=== PATIENT | female | born 1985 | race Caucasian/White ===

== ENCOUNTER → 2017-06-28 | Emergency (ER) | payer MEDICAID ==
[~2017-06-28] VITALS: Ht 157.5 cm; Wt 71.1 kg
[~2017-06-28] MED LIST: ESCI10TA45 PO; HYDR-3965 PO; HYDR-565 PO; HYDR-569 PO; LEVO1IUD VG; LORA1TAB PO; LORazepam 2 mg/ml vial IV ONE; ONDA4TAB12 PO; ONDA4TAB6 PO; OXYC-145 PO; PANT-47 PO; PROM25SU46 RC; RES15C PO; SUCR1TAB PO; metoclopramide 5 mg/ml inj IV ONE; morphine 2 MG/ML inj. syringe IV ONE; normal saline 1000ML IV soln IVB ONE; ondansetron/PF 4mg/2ml inj IV ONE
[2017-06-28 03:50] LABS: BASOPHILS % (AUTO) 0.5 % (0-1); EOSINOPHILS # (AUTO) 0.2 X10'3 (0-0.9); EOSINOPHILS % (AUTO) 2.4 % (0-6); HEMOGLOBIN 13.5 g/dl (12.0-16.0); LYMPHOCYTES # (AUTO) 2.2 X10'3 (1.1-4.8); LYMPHOCYTES % (AUTO) 27.3 % (21-51); MEAN CORPUSCULAR HEMOGLOBIN 30.6 PG (27.0-31.0); MEAN CORPUSCULAR HGB CONC 33.8 % (33.0-36.5); MEAN CORPUSCULAR VOLUME 90.5 FL (78-98); MEAN PLATELET VOLUME 7.4 FL (7.4-10.4); MONOCYTES # (AUTO) 0.8 X10'3 (0-0.9); MONOCYTES % (AUTO) 9.4 % (2-12); NEUTROPHILS # (AUTO) 4.9 X10'3 (1.8-7.7); NEUTROPHILS % (AUTO) 60.4 % (42-75); PLATELET COUNT 281 X10'3 (140-440); RED BLOOD COUNT 4.42 X10'6 (4.20-5.60); RED CELL DISTRIBUTION WIDTH 14.4 % (11.5-14.5); WHITE BLOOD COUNT 8.1 X10'3 (4.5-11.0)
[2017-06-28 04:08] LABS: ALANINE AMINOTRANSFERASE 24 U/L (12-78); ALBUMIN 3.4 G/DL (3.4-5.0); ALBUMIN/GLOBULIN RATIO 1.1 (1.1-1.5); ALKALINE PHOSPHATASE 49 IU/L (46-116); ANION GAP 8 (8-16); ASPARTATE AMINO TRANSFERASE 18 U/L (10-37); BILIRUBIN,TOTAL 0.3 MG/DL (0.1-1.0); BLOOD UREA NITROGEN 14 MG/DL (7-18); BUN/CREATININE RATIO 17.5 (6.6-38.0); CALCIUM 8.7 MG/DL (8.5-10.1); CHLORIDE 106 MMOL/L (99-107); GLUCOSE 92 MG/DL (70-104); LIPASE 118 U/L (73-393); SODIUM 140 MMOL/L (135-145); TOTAL CARBON DIOXIDE 26.1 MMOL/L (24-32); TOTAL PROTEIN 6.6 G/DL (6.4-8.2); eGFR 83 ML/MIN
[2017-06-28 04:18] LABS: HCG SERUM QL NEGATIVE
[2017-06-28 05:08] VITALS: BP 115/68
== END | disposition home or self-care (01) ==
LOC: ER 03:12
DX: R10.84 Generalized abdominal pain (principal); R11.2 Nausea with vomiting, unspecified; G89.29 Other chronic pain; J45.909 Unspecified asthma, uncomplicated; Z88.1 Allergy status to other antibiotic agents; Z90.49 Acquired absence of other specified parts of digestive tract; Z98.890 Other specified postprocedural states; Z79.899 Other long term (current) drug therapy
CPT/HCPCS: 36415; 80053; 83690; 84703; 85025; 96361; 96374; 96375; 99284; J2060; J2270; J2405; J2765; J7030

== ENCOUNTER 2017-10-25 17:49 | Emergency (ER) | payer MEDICAID ==
[~2017-10-25] VITALS: Ht 157.5 cm; Wt 68.0 kg
[~2017-10-25 17:49] MED LIST changes: -HYDR-3965 PO; -LORazepam 2 mg/ml vial IV ONE; -metoclopramide 5 mg/ml inj IV ONE; -morphine 2 MG/ML inj. syringe IV ONE; -normal saline 1000ML IV soln IVB ONE; -ondansetron/PF 4mg/2ml inj IV ONE
[2017-10-25] MEDS ORDERED: morphine 4 MG/ML inj SYRINge IV ONE (20:40)
[2017-10-25] MEDS ORDERED: normal saline 1000ML IV soln IVB ONE (20:40)
[2017-10-25] MEDS ORDERED: ondansetron/PF 4mg/2ml inj IV ONE (20:40)
[2017-10-25 21:45] LABS: BASOPHILS % (AUTO) 0.4 % (0-1); EOSINOPHILS # (AUTO) 0.2 X10'3 (0-0.9); EOSINOPHILS % (AUTO) 2.7 % (0-6); HEMATOCRIT 39.3 % (35.0-45.0); HEMOGLOBIN 13.3 g/dl (12.0-16.0); LYMPHOCYTES # (AUTO) 2.9 X10'3 (1.1-4.8); LYMPHOCYTES % (AUTO) 36.1 % (21-51); MEAN CORPUSCULAR HEMOGLOBIN 30.5 PG (27.0-31.0); MEAN CORPUSCULAR HGB CONC 33.9 % (33.0-36.5); MEAN PLATELET VOLUME 7.8 FL (7.4-10.4); MONOCYTES # (AUTO) 0.8 X10'3 (0-0.9); MONOCYTES % (AUTO) 9.5 % (2-12); NEUTROPHILS # (AUTO) 4.1 X10'3 (1.8-7.7); NEUTROPHILS % (AUTO) 51.3 % (42-75); PLATELET COUNT 272 X10'3 (140-440); RED BLOOD COUNT 4.37 X10'6 (4.20-5.60); RED CELL DISTRIBUTION WIDTH 14.2 % (11.5-14.5)
[2017-10-25 21:54] LABS: INR 1.1 INR; PARTIAL THROMBOPLASTIN TIME 26 SECONDS (22-32)
[2017-10-25 21:58] LABS: ALANINE AMINOTRANSFERASE 19 U/L (12-78); ALBUMIN 3.8 G/DL (3.4-5.0); ALBUMIN/GLOBULIN RATIO 1.2 (1.1-1.5); ALKALINE PHOSPHATASE 50 IU/L (46-116); ANION GAP 6 (8-16); ASPARTATE AMINO TRANSFERASE 19 U/L (10-37); BILIRUBIN,TOTAL 0.3 MG/DL (0.1-1.0); BLOOD UREA NITROGEN 17 MG/DL (7-18); CHLORIDE 105 MMOL/L (99-107); CREATININE 0.85 MG/DL (0.40-0.90); GLUCOSE 86 MG/DL (70-104); LIPASE 171 U/L (73-393); MAGNESIUM 1.6 MG/DL (1.5-2.4); POTASSIUM 3.5 MMOL/L (3.5-5.1); SODIUM 140 MMOL/L (135-145); TOTAL CARBON DIOXIDE 28.9 MMOL/L (24-32); TOTAL PROTEIN 7.1 G/DL (6.4-8.2); eGFR 78 ML/MIN
[2017-10-25 22:55] VITALS: BP 109/55
== END 2017-10-25 22:57 | disposition home or self-care (01) ==
LOC: ER 17:49
DX: E86.0 Dehydration (principal); F12.10 Cannabis abuse, uncomplicated; J45.909 Unspecified asthma, uncomplicated; G89.29 Other chronic pain; F17.200 Nicotine dependence, unspecified, uncomplicated; Z88.8 Allergy status to other drugs, medicaments and biological substances; Z79.899 Other long term (current) drug therapy; Z90.49 Acquired absence of other specified parts of digestive tract; Z90.89 Acquired absence of other organs
CPT/HCPCS: 36415; 74021; 80053; 83690; 83735; 85025; 85610; 85730; 93005; 96361; 96374; 96375; 99285; J2270; J2405; J7030

== ENCOUNTER 2018-02-05 14:11 | Emergency (ER) | payer MEDICAID ==
[~2018-02-05] VITALS: Ht 157.5 cm; Wt 63.0 kg
[2018-02-05 14:38] LABS: BASOPHILS % (AUTO) 0.5 % (0-1); EOSINOPHILS # (AUTO) 0.2 X10'3 (0-0.9); EOSINOPHILS % (AUTO) 2.9 % (0-6); HEMATOCRIT 37.4 % (35.0-45.0); HEMOGLOBIN 12.8 g/dl (12.0-16.0); LYMPHOCYTES # (AUTO) 1.5 X10'3 (1.1-4.8); LYMPHOCYTES % (AUTO) 25.1 % (21-51); MEAN CORPUSCULAR HEMOGLOBIN 30.3 PG (27.0-31.0); MEAN CORPUSCULAR HGB CONC 34.2 % (33.0-36.5); MEAN CORPUSCULAR VOLUME 88.6 FL (78-98); MEAN PLATELET VOLUME 7.9 FL (7.4-10.4); MONOCYTES # (AUTO) 0.5 X10'3 (0-0.9); MONOCYTES % (AUTO) 8.4 % (2-12); NEUTROPHILS # (AUTO) 3.8 X10'3 (1.8-7.7); NEUTROPHILS % (AUTO) 63.1 % (42-75); PLATELET COUNT 283 X10'3 (140-440); RED BLOOD COUNT 4.22 X10'6 (4.20-5.60)
[2018-02-05 14:42] LABS: CLARITY,URINE CLEAR (Clear); COLOR,URINE YELLOW (Yellow); GLUCOSE, URINE NEGATIVE (Neg); KETONES,URINE NEGATIVE (Neg); LEUKOCYTE ESTERASE ,URINE NEGATIVE (Neg); NITRITES, URINE NEGATIVE (Neg); OCCULT BLOOD,URINE NEGATIVE (Neg); PROTEIN,URINE NEGATIVE (Neg); UA COLLECTION TYPE CLN CATCH MIDSTREAM; UROBILINOGEN,URINE 0.2 E.U/dL (0.2-1.0)
[2018-02-05 14:43] LABS: URINE HCG NEGATIVE (NEG)
[2018-02-05 14:47] LABS: PROTHROMBIN TIME 10.6 SECONDS (9.0-12.0)
[2018-02-05 14:55] LABS: ALANINE AMINOTRANSFERASE 24 U/L (12-78); ALBUMIN 3.5 G/DL (3.4-5.0); ALKALINE PHOSPHATASE 54 IU/L (46-116); ANION GAP 6 (8-16); ASPARTATE AMINO TRANSFERASE 17 U/L (10-37); BILIRUBIN,TOTAL 0.2 MG/DL (0.1-1.0); BLOOD UREA NITROGEN 12 MG/DL (7-18); BUN/CREATININE RATIO 12.2 (6.6-38.0); CALCIUM 8.6 MG/DL (8.5-10.1); CHLORIDE 105 MMOL/L (99-107); CREATININE 0.98 MG/DL (0.40-0.90); GLUCOSE 94 MG/DL (70-104); LIPASE 171 U/L (73-393); POTASSIUM 4.1 MMOL/L (3.5-5.1); SODIUM 139 MMOL/L (135-145); TOTAL CARBON DIOXIDE 27.6 MMOL/L (24-32); TOTAL PROTEIN 6.9 G/DL (6.4-8.2); eGFR 66 ML/MIN
[2018-02-05] MEDS ORDERED: ondansetron/PF 4mg/2ml inj IV ONE (17:20)
[2018-02-05] MEDS ORDERED: normal saline 1000ml 1,000 ML IV ONE (17:20)
[2018-02-05] MEDS ORDERED: mag hydrox/Alum hydrox/simeth 30ml oral suspension PO ONE (17:20)
[2018-02-05 17:39] VITALS: BP 113/65
== END 2018-02-05 18:15 | disposition home or self-care (01) ==
LOC: ER 14:12
DX: R10.13 Epigastric pain (principal); R11.10 Vomiting, unspecified; J45.909 Unspecified asthma, uncomplicated; G89.29 Other chronic pain; F12.90 Cannabis use, unspecified, uncomplicated; Z90.49 Acquired absence of other specified parts of digestive tract; Z90.89 Acquired absence of other organs; Z88.1 Allergy status to other antibiotic agents; Z79.899 Other long term (current) drug therapy
CPT/HCPCS: 36415; 80053; 81003; 81025; 83690; 85025; 85610; 96374; 99284; J2405; J7030

== ENCOUNTER 2018-02-07 09:25 | Emergency (ER) | payer MEDICAID ==
[~2018-02-07] VITALS: Ht 157.5 cm; Wt 67.0 kg
[2018-02-07 09:30] VITALS: BP 117/78
[2018-02-07] MEDS ORDERED: PSYL1PAC9 PO (09:47)
[2018-02-07] MEDS ORDERED: GABA-532 PO (09:47)
[2018-02-07] MEDS ORDERED: normal saline 1000ML IV soln IVB ONE (09:55)
== END 2018-02-07 10:40 | disposition left against medical advice (07) ==
LOC: ER 09:26
DX: R10.84 Generalized abdominal pain (principal); J45.909 Unspecified asthma, uncomplicated; G89.29 Other chronic pain; F12.90 Cannabis use, unspecified, uncomplicated; Z88.1 Allergy status to other antibiotic agents
CPT/HCPCS: 99283; 99284

== ENCOUNTER 2018-05-14 09:17 | Emergency (ER) | payer MEDICAID ==
[~2018-05-14] VITALS: Ht 157.5 cm; Wt 65.9 kg
[~2018-05-14 09:17] MED LIST changes: +GABA-532 PO; +HYDR-4353 PO; +HYDR-4383 PO; -HYDR-565 PO; -HYDR-569 PO; +PSYL1PAC9 PO
[2018-05-14] MEDS ORDERED: morphine 4 MG/ML inj SYRINge IV ONE (10:40)
[2018-05-14] MEDS ORDERED: normal saline 1000ML IV soln IVB ONE (10:40)
[2018-05-14] MEDS ORDERED: ondansetron/PF 4mg/2ml inj IV ONE (10:40)
[2018-05-14 11:04] LABS: BASOPHILS % (AUTO) 0.4 % (0-1); EOSINOPHILS # (AUTO) 0.1 X10'3 (0-0.9); EOSINOPHILS % (AUTO) 2.8 % (0-6); HEMATOCRIT 40.6 % (35.0-45.0); HEMOGLOBIN 13.3 g/dl (12.0-16.0); LYMPHOCYTES # (AUTO) 1.5 X10'3 (1.1-4.8); MEAN CORPUSCULAR HEMOGLOBIN 28.6 PG (27.0-31.0); MEAN CORPUSCULAR HGB CONC 32.7 % (33.0-36.5); MEAN CORPUSCULAR VOLUME 87.2 FL (78-98); MEAN PLATELET VOLUME 7.8 FL (7.4-10.4); MONOCYTES # (AUTO) 0.5 X10'3 (0-0.9); MONOCYTES % (AUTO) 9.7 % (2-12); NEUTROPHILS # (AUTO) 2.9 X10'3 (1.8-7.7); NEUTROPHILS % (AUTO) 57.1 % (42-75); PLATELET COUNT 314 X10'3 (140-440); RED BLOOD COUNT 4.66 X10'6 (4.20-5.60); RED CELL DISTRIBUTION WIDTH 14.6 % (11.5-14.5); WHITE BLOOD COUNT 5.1 X10'3 (4.5-11.0)
[2018-05-14 11:22] LABS: ALANINE AMINOTRANSFERASE 20 U/L (12-78); ALBUMIN 4.1 G/DL (3.4-5.0); ALBUMIN/GLOBULIN RATIO 1.1 (1.1-1.5); ALKALINE PHOSPHATASE 62 IU/L (46-116); ANION GAP 12 (8-16); ASPARTATE AMINO TRANSFERASE 14 U/L (10-37); BILIRUBIN,TOTAL 0.3 MG/DL (0.1-1.0); BLOOD UREA NITROGEN 13 MG/DL (7-18); BUN/CREATININE RATIO 12.5 (6.6-38.0); CALCIUM 9.4 MG/DL (8.5-10.1); CHLORIDE 102 MMOL/L (99-107); CREATININE 1.04 MG/DL (0.40-0.90); GLUCOSE 91 MG/DL (70-104); LIPASE 121 U/L (73-393); POTASSIUM 3.6 MMOL/L (3.5-5.1); SODIUM 139 MMOL/L (135-145); TOTAL CARBON DIOXIDE 25.4 MMOL/L (24-32); TOTAL PROTEIN 7.8 G/DL (6.4-8.2); eGFR 61 ML/MIN
[2018-05-14 11:39] LABS: CLARITY,URINE CLEAR (Clear); COLOR,URINE YELLOW (Yellow); GLUCOSE, URINE NEGATIVE (Neg); KETONES,URINE NEGATIVE (Neg); LEUKOCYTE ESTERASE ,URINE NEGATIVE (Neg); NITRITES, URINE NEGATIVE (Neg); OCCULT BLOOD,URINE LARGE (Neg); PH,URINE 5.5 (4.8-8.0); PROTEIN,URINE NEGATIVE (Neg); UROBILINOGEN,URINE 0.2 E.U/dL (0.2-1.0)
[2018-05-14 11:40] LABS: UA COLLECTION TYPE CLN CATCH MIDSTREAM
[2018-05-14 11:54] LABS: BACTERIA,URINE NONE SEEN /HPF (Neg); MUCUS STRANDS FEW /LPF (Neg); RBC,URINE 0-2 /HPF (0-2); SQUAMOUS EPITHELIAL CELL,UR FEW /LPF (FEW); WBC,URINE 0-4 /HPF (0-4)
[2018-05-14 12:21] VITALS: BP 146/65
== END 2018-05-14 12:26 | disposition home or self-care (01) ==
LOC: ER 09:17
DX: R10.84 Generalized abdominal pain (principal); R11.2 Nausea with vomiting, unspecified; F41.9 Anxiety disorder, unspecified; F32.9 Major depressive disorder, single episode, unspecified; F12.10 Cannabis abuse, uncomplicated; J45.909 Unspecified asthma, uncomplicated; G89.29 Other chronic pain; Z88.1 Allergy status to other antibiotic agents; Z91.018 Allergy to other foods; Z90.89 Acquired absence of other organs
CPT/HCPCS: 36415; 74018; 80053; 81001; 83690; 85025; 96361; 96374; 96375; 99284; J2270; J2405; J7030

== ENCOUNTER 2018-07-26 19:10 | Emergency (ER) | payer MEDICAID ==
[~2018-07-26] VITALS: Ht 157.5 cm; Wt 67.6 kg
[2018-07-26 19:38] LABS: URINE HCG NEGATIVE (NEG)
[2018-07-26 19:39] LABS: BASOPHILS # (AUTO) 0.2 X10'3 (0-0.2); BASOPHILS % (AUTO) 1.9 % (0-1); EOSINOPHILS # (AUTO) 0.1 X10'3 (0-0.9); EOSINOPHILS % (AUTO) 1.1 % (0-6); HEMOGLOBIN 13.4 g/dl (12.0-16.0); LYMPHOCYTES % (AUTO) 17.9 % (21-51); MEAN CORPUSCULAR HEMOGLOBIN 29.1 PG (27.0-31.0); MEAN CORPUSCULAR HGB CONC 33.4 g/dL (33.0-36.5); MEAN CORPUSCULAR VOLUME 87.2 FL (78-98); MEAN PLATELET VOLUME 7.6 FL (7.4-10.4); MONOCYTES # (AUTO) 0.7 X10'3 (0-0.9); MONOCYTES % (AUTO) 6.7 % (2-12); NEUTROPHILS # (AUTO) 8.1 X10'3 (1.8-7.7); NEUTROPHILS % (AUTO) 72.4 % (42-75); PLATELET COUNT 355 X10'3 (140-440); RED BLOOD COUNT 4.59 X10'6 (4.20-5.60); RED CELL DISTRIBUTION WIDTH 14.7 % (11.5-14.5); WHITE BLOOD COUNT 11.1 X10'3 (4.5-11.0)
[2018-07-26 19:50] LABS: INR 1.1 INR; PROTHROMBIN TIME 10.7 SECONDS (9.0-12.0)
[2018-07-26 19:52] LABS: CLARITY,URINE SLIGHTLY CLOUDY (Clear); COLOR,URINE YELLOW (Yellow); GLUCOSE, URINE NEGATIVE (Neg); KETONES,URINE TRACE mg/dl (Neg); LEUKOCYTE ESTERASE ,URINE NEGATIVE (Neg); NITRITES, URINE NEGATIVE (Neg); OCCULT BLOOD,URINE NEGATIVE (Neg); PH,URINE 5.5 (4.8-8.0); PROTEIN,URINE NEGATIVE (Neg); UROBILINOGEN,URINE 0.2 E.U/dL (0.2-1.0)
[2018-07-26 20:03] LABS: ALANINE AMINOTRANSFERASE 18 U/L (12-78); ALBUMIN/GLOBULIN RATIO 1.1 (1.1-1.5); ALKALINE PHOSPHATASE 55 IU/L (46-116); ANION GAP 11 (8-16); ASPARTATE AMINO TRANSFERASE 20 U/L (10-37); BILIRUBIN,TOTAL 0.5 MG/DL (0.1-1.0); BLOOD UREA NITROGEN 13 MG/DL (7-18); BUN/CREATININE RATIO 14.1 (6.6-38.0); CHLORIDE 104 MMOL/L (99-107); CREATININE 0.92 MG/DL (0.40-0.90); GLUCOSE 83 MG/DL (70-104); LIPASE 145 U/L (73-393); POTASSIUM 3.7 MMOL/L (3.5-5.1); SODIUM 139 MMOL/L (135-145); TOTAL CARBON DIOXIDE 24.1 MMOL/L (24-32); TOTAL PROTEIN 7.5 G/DL (6.4-8.2); eGFR 70 ML/MIN
[2018-07-26 20:16] LABS: UA COLLECTION TYPE CLN CATCH MIDSTREAM
[2018-07-26] MEDS ORDERED: HYDROcodone/acetaminophen 5mg/325mg tablet PO ONE (20:25)
[2018-07-26] MEDS ORDERED: metoclopramide 5 mg/ml inj IV ONE (20:25)
[2018-07-26 20:45] LABS: BACTERIA,URINE FEW /HPF (Neg); MUCUS STRANDS MANY /LPF (Neg); RBC,URINE NONE SEEN /HPF (0-2); SQUAMOUS EPITHELIAL CELL,UR MANY /LPF (FEW); WBC,URINE 0-4 /HPF (0-4)
[2018-07-26 21:19] VITALS: BP 126/72
== END 2018-07-26 21:28 | disposition home or self-care (01) ==
LOC: ER 19:11
DX: R10.13 Epigastric pain (principal); R11.2 Nausea with vomiting, unspecified; J45.909 Unspecified asthma, uncomplicated; G89.29 Other chronic pain; F12.90 Cannabis use, unspecified, uncomplicated; Z90.49 Acquired absence of other specified parts of digestive tract; Z90.89 Acquired absence of other organs; Z98.890 Other specified postprocedural states; Z79.899 Other long term (current) drug therapy; Z91.018 Allergy to other foods; Z88.1 Allergy status to other antibiotic agents; Z91.010 Allergy to peanuts; Z91.011 Allergy to milk products
CPT/HCPCS: 36415; 74018; 80053; 81001; 81025; 83690; 85025; 85610; 96374; 99284; J2765

== ENCOUNTER 2019-04-17 17:01 | Emergency (ER) | payer MEDICAID ==
[~2019-04-17] VITALS: Ht 157.5 cm; Wt 75.0 kg
[2019-04-17 17:09] VITALS: BP 128/75
== END 2019-04-17 18:10 | disposition home or self-care (01) ==
LOC: ER 17:02
DX: M79.641 Pain in right hand (principal); J45.909 Unspecified asthma, uncomplicated; G89.4 Chronic pain syndrome; F41.9 Anxiety disorder, unspecified; F12.20 Cannabis dependence, uncomplicated; F32.9 Major depressive disorder, single episode, unspecified; F12.90 Cannabis use, unspecified, uncomplicated; Z90.49 Acquired absence of other specified parts of digestive tract; Z88.1 Allergy status to other antibiotic agents; Z91.09 Other allergy status, other than to drugs and biological substances; Z91.018 Allergy to other foods
CPT/HCPCS: 73110; 73130; 99283

== ENCOUNTER 2019-05-14 07:05 | Emergency (ER) | payer MEDICAID ==
[~2019-05-14] VITALS: Ht 157.5 cm; Wt 72.7 kg
[2019-05-14 07:08] VITALS: BP 129/83
--- NOTE | 2019-05-14 07:14 | NUR ---
awaiting ed provider.call light within reach.
[2019-05-14] MEDS ORDERED: ketorolac trometh inj. 60 MG/2 ML VIAL IM ONE (07:40)
[2019-05-14] MEDS ORDERED: PENI500T2 PO (07:40)
[2019-05-14] MEDS ORDERED: ACET-3067 PO (07:40)
== END 2019-05-14 07:59 | disposition home or self-care (01) ==
LOC: ER 07:05
DX: K02.9 Dental caries, unspecified (principal); J45.909 Unspecified asthma, uncomplicated; F41.9 Anxiety disorder, unspecified; F32.9 Major depressive disorder, single episode, unspecified; G89.29 Other chronic pain; F12.90 Cannabis use, unspecified, uncomplicated; Z90.49 Acquired absence of other specified parts of digestive tract; Z98.890 Other specified postprocedural states; Z91.018 Allergy to other foods; Z88.1 Allergy status to other antibiotic agents; Z79.899 Other long term (current) drug therapy
CPT/HCPCS: 96372; 99283; J1885

== ENCOUNTER 2019-05-21 10:34 | Emergency (ER) | payer MEDICAID ==
[~2019-05-21] VITALS: Ht 157.5 cm; Wt 75.0 kg
[~2019-05-21 10:34] MED LIST changes: +PENI500T2 PO
[2019-05-21 11:09] LABS: URINE HCG NEGATIVE (NEG)
[2019-05-21 11:10] LABS: BASOPHILS % (AUTO) 0.3 % (0-1); EOSINOPHILS % (AUTO) 0.3 % (0-6); HEMATOCRIT 41.9 % (35.0-45.0); HEMOGLOBIN 14.4 g/dl (12.0-16.0); LYMPHOCYTES # (AUTO) 1.2 X10'3 (1.1-4.8); LYMPHOCYTES % (AUTO) 11.3 % (21-51); MEAN CORPUSCULAR HEMOGLOBIN 29.1 PG (27.0-31.0); MEAN CORPUSCULAR HGB CONC 34.3 g/dL (33.0-36.5); MEAN CORPUSCULAR VOLUME 84.9 FL (78-98); MEAN PLATELET VOLUME 7.5 FL (7.4-10.4); MONOCYTES # (AUTO) 0.3 X10'3 (0-0.9); MONOCYTES % (AUTO) 2.8 % (2-12); NEUTROPHILS # (AUTO) 8.7 X10'3 (1.8-7.7); NEUTROPHILS % (AUTO) 85.3 % (42-75); PLATELET COUNT 324 X10'3 (140-440); RED BLOOD COUNT 4.94 X10'6 (4.20-5.60); RED CELL DISTRIBUTION WIDTH 14.8 % (11.5-14.5); WHITE BLOOD COUNT 10.2 X10'3 (4.5-11.0)
[2019-05-21 11:14] LABS: CLARITY,URINE SLIGHTLY CLOUDY (Clear); COLOR,URINE YELLOW (Yellow); GLUCOSE, URINE NEGATIVE (Neg); KETONES,URINE NEGATIVE (Neg); LEUKOCYTE ESTERASE ,URINE NEGATIVE (Neg); NITRITES, URINE NEGATIVE (Neg); OCCULT BLOOD,URINE NEGATIVE (Neg); PH,URINE >=9.0 (4.8-8.0); PROTEIN,URINE NEGATIVE (Neg); UA COLLECTION TYPE CLN CATCH MIDSTREAM; UROBILINOGEN,URINE 0.2 E.U/dL (0.2-1.0)
[2019-05-21 11:24] LABS: MUCUS STRANDS MODERATE /LPF (Neg)
[2019-05-21 11:25] LABS: SQUAMOUS EPITHELIAL CELL,UR MODERATE /LPF (FEW)
[2019-05-21 11:26] LABS: ALANINE AMINOTRANSFERASE 22 U/L (12-78); ALKALINE PHOSPHATASE 54 IU/L (46-116); ANION GAP 9 (8-16); ASPARTATE AMINO TRANSFERASE 14 U/L (10-37); BILIRUBIN,TOTAL 0.3 MG/DL (0.1-1.0); BLOOD UREA NITROGEN 13 MG/DL (7-18); BUN/CREATININE RATIO 14.1 (6.6-38.0); CALCIUM 9.4 MG/DL (8.5-10.1); CHLORIDE 104 MMOL/L (99-107); CREATININE 0.92 MG/DL (0.40-0.90); GLUCOSE 110 MG/DL (70-104); LIPASE 169 U/L (73-393); POTASSIUM 4.2 MMOL/L (3.5-5.1); SODIUM 139 MMOL/L (135-145); TOTAL CARBON DIOXIDE 25.6 MMOL/L (24-32); TOTAL PROTEIN 7.9 G/DL (6.4-8.2); eGFR 70 ML/MIN
[2019-05-21 11:26] LABS: BACTERIA,URINE FEW /HPF (Neg); RBC,URINE 0-2 /HPF (0-2); WBC,URINE 0-4 /HPF (0-4)
[2019-05-21] MEDS ORDERED: proCHLORperazine 10 MG/2 ml inj IV ONE (12:10)
[2019-05-21] MEDS ORDERED: ketorolac trometh. 30mg/ml inj. IV ONE (12:10)
[2019-05-21] MEDS ORDERED: normal saline 1000ML IV soln IVB ONE (12:10)
[2019-05-21] MEDS ORDERED: ondansetron/PF 4mg/2ml inj IV ONE (12:10)
[2019-05-21] MEDS ORDERED: PANT-47 PO (12:39)
[2019-05-21] MEDS ORDERED: ONDA8TAB6 PO (12:39)
[2019-05-21] MEDS ORDERED: sucralfate 1gm/10ml UD suspension PO ONE (12:40)
[2019-05-21] MEDS ORDERED: dicyclomine 10mg/ml 2ml ampule IM ONE (12:40)
[2019-05-21] MEDS ORDERED: pantoprazole 40 MG vial IV ONE (12:40)
[2019-05-21 13:33] VITALS: BP 138/69
== END 2019-05-21 13:35 | disposition home or self-care (01) ==
LOC: ER 10:34
DX: K29.70 Gastritis, unspecified, without bleeding (principal); J45.909 Unspecified asthma, uncomplicated; G89.29 Other chronic pain; F41.9 Anxiety disorder, unspecified; F32.9 Major depressive disorder, single episode, unspecified; F12.90 Cannabis use, unspecified, uncomplicated; Z90.49 Acquired absence of other specified parts of digestive tract; Z98.890 Other specified postprocedural states; Z88.1 Allergy status to other antibiotic agents; Z91.018 Allergy to other foods; Z79.899 Other long term (current) drug therapy
CPT/HCPCS: 36415; 80053; 81001; 81025; 83690; 85025; 96361; 96372; 96374; 96375; 99283; C9113; J0500; J0780; J1885; J2405; J7030

== ENCOUNTER 2020-09-20 08:32 | Emergency (ER) | payer MEDICAID ==
[~2020-09-20] VITALS: Ht 157.5 cm; Wt 75.0 kg
[~2020-09-20 08:32] MED LIST changes: +ONDA8TAB6 PO; -PENI500T2 PO; -PROM25SU46 RC; +PROM25SU9 RC
[2020-09-20] MEDS ORDERED: NAPR-56 PO (09:04)
[2020-09-20] MEDS ORDERED: ORPH100T2 PO (09:04)
[2020-09-20] MEDS ORDERED: ketorolac trometh. 30mg/ml inj. IM ONE (09:05)
[2020-09-20] MEDS ORDERED: orphenadrine citrate 60mg/2ml inj. IM ONE (09:05)
[2020-09-20] MEDS ORDERED: ketorolac trometh inj. 60 MG/2 ML VIAL IM ONE (09:05)
[2020-09-20 09:17] VITALS: BP 128/89
== END 2020-09-20 09:20 | disposition home or self-care (01) ==
LOC: ER 08:33
DX: S39.012A Strain of muscle, fascia and tendon of lower back, initial encounter (principal); M62.838 Other muscle spasm; R05 Cough; J45.909 Unspecified asthma, uncomplicated; G89.29 Other chronic pain; F41.9 Anxiety disorder, unspecified; F32.9 Major depressive disorder, single episode, unspecified; F12.90 Cannabis use, unspecified, uncomplicated; Z85.41 Personal history of malignant neoplasm of cervix uteri; Z90.89 Acquired absence of other organs; Z98.890 Other specified postprocedural states; Z88.1 Allergy status to other antibiotic agents; Z88.8 Allergy status to other drugs, medicaments and biological substances; Z79.899 Other long term (current) drug therapy; X58.XXXA Exposure to other specified factors, initial encounter; Y93.89 Activity, other specified; Y92.89 Other specified places as the place of occurrence of the external cause; Y99.8 Other external cause status
CPT/HCPCS: 96372; 99284; J1885; J2360

== ENCOUNTER 2021-05-07 14:55 | Emergency (ER) | payer MEDICAID ==
[~2021-05-07] VITALS: Ht 157.5 cm; Wt 72.7 kg
[~2021-05-07 14:55] MED LIST changes: +ORPH100T2 PO
[2021-05-07] MEDS ORDERED: LORazepam 1 MG tablet PO ONE (15:45)
[2021-05-07] MEDS ORDERED: LORA-269 PO (17:17)
[2021-05-07 17:22] VITALS: BP 126/90
== END 2021-05-07 17:37 | disposition home or self-care (01) ==
LOC: ER 14:56
DX: F41.0 Panic disorder [episodic paroxysmal anxiety] (principal); F41.9 Anxiety disorder, unspecified; F32.9 Major depressive disorder, single episode, unspecified; J45.909 Unspecified asthma, uncomplicated; G89.29 Other chronic pain; F12.90 Cannabis use, unspecified, uncomplicated; Z87.410 Personal history of cervical dysplasia; Z90.49 Acquired absence of other specified parts of digestive tract; Z90.89 Acquired absence of other organs; Z98.890 Other specified postprocedural states; Z88.1 Allergy status to other antibiotic agents; Z91.018 Allergy to other foods; Z79.899 Other long term (current) drug therapy
CPT/HCPCS: 93005; 99283

== ENCOUNTER 2022-02-02 11:47 | Emergency (ER) | payer MEDICAID ==
[~2022-02-02] VITALS: Ht 157.5 cm; Wt 81.8 kg
[~2022-02-02 11:47] MED LIST changes: +LORA-269 PO
[2022-02-02 12:58] VITALS: BP 114/61
[2022-02-02] MEDS ORDERED: ondansetron 4mg rapidly disintigrating tab PO ONE (13:55)
[2022-02-02] MEDS ORDERED: ketorolac trometh. 30mg/ml inj. IM ONE (13:55)
[2022-02-02] MEDS ORDERED: LIDOcaine 1% W/epiNEPHrine 1:100,000 20ml vial IJ ONE (13:55)
[2022-02-02] MEDS ORDERED: TETanus/Pertussis (Acell)/Diphther VAC/PF (Tdap-Adult) 0.5ml syringe IMVAC ONE (13:55)
[2022-02-02] MEDS ORDERED: LIDOcaine 1% w/EPI 1:100,000 30ml vial (MDV) IJ ONE (14:10)
[2022-02-02] MEDS ORDERED: LORA-269 PO (17:18)
== END 2022-02-02 17:43 | disposition home or self-care (01) ==
LOC: ER 11:47
DX: S01.81XA Laceration without foreign body of other part of head, initial encounter (principal); J45.909 Unspecified asthma, uncomplicated; G89.29 Other chronic pain; F31.9 Bipolar disorder, unspecified; F12.10 Cannabis abuse, uncomplicated; Z90.49 Acquired absence of other specified parts of digestive tract; Z79.899 Other long term (current) drug therapy; Z91.018 Allergy to other foods; Z88.1 Allergy status to other antibiotic agents; X58.XXXA Exposure to other specified factors, initial encounter; Y93.9 Activity, unspecified; Y92.89 Other specified places as the place of occurrence of the external cause; Y99.8 Other external cause status; Z91.010 Allergy to peanuts
CPT/HCPCS: 90471; 90715; 96372; 99284; J1885; J7030; A6449

== ENCOUNTER 2022-10-20 18:43 | Emergency (ER) | payer MEDICAID ==
[~2022-10-20] VITALS: Ht 157.5 cm; Wt 81.8 kg
[~2022-10-20 18:43] MED LIST changes: -ORPH100T2 PO; +ORPH100T4 PO
[2022-10-20] MEDS ORDERED: normal saline 1000ML IV soln IVB ONE ×2 (19:25→20:45)
[2022-10-20] MEDS ORDERED: ondansetron/PF 4mg/2ml inj IV ONE (19:25)
[2022-10-20 19:28] LABS: HEMOGLOBIN 13.7 g/dl (12.0-16.0); MEAN CORPUSCULAR VOLUME 87.7 FL (78-98); WHITE BLOOD COUNT 7.5 X10'3 (4.5-11.0)
[2022-10-20 19:30] LABS: BASOPHILS % (AUTO) 0.4 % (0-1); EOSINOPHILS # (AUTO) 0.1 X10'3 (0-0.9); EOSINOPHILS % (AUTO) 1.2 % (0-6); HEMATOCRIT 41.6 % (35.0-45.0); LYMPHOCYTES % (AUTO) 26.8 % (21-51); MEAN CORPUSCULAR HEMOGLOBIN 28.9 PG (27.0-31.0); MEAN PLATELET VOLUME 7.6 FL (7.4-10.4); MONOCYTES # (AUTO) 0.7 X10'3 (0-0.9); MONOCYTES % (AUTO) 8.7 % (2-12); NEUTROPHILS # (AUTO) 4.7 X10'3 (1.8-7.7); NEUTROPHILS % (AUTO) 62.9 % (42-75); PLATELET COUNT 298 X10'3 (140-440); RED BLOOD COUNT 4.74 X10'6 (4.20-5.60); RED CELL DISTRIBUTION WIDTH 14.6 % (11.5-14.5)
[2022-10-20 19:39] LABS: ALANINE AMINOTRANSFERASE 19 U/L (12-78); ALBUMIN/GLOBULIN RATIO 1.1 (1.1-1.5); ALKALINE PHOSPHATASE 62 IU/L (46-116); ANION GAP 11 (8-16); ASPARTATE AMINO TRANSFERASE 21 U/L (10-37); BILIRUBIN,TOTAL 0.4 MG/DL (0.1-1.0); BLOOD UREA NITROGEN 11 MG/DL (7-18); BUN/CREATININE RATIO 12.5 (10.0-20.0); CALCIUM 9.4 MG/DL (8.5-10.1); CHLORIDE 104 MMOL/L (99-107); CREATININE 0.88 MG/DL (0.40-0.90); GLUCOSE 85 MG/DL (70-104); LIPASE 208 U/L (73-393); POTASSIUM 3.6 MMOL/L (3.5-5.1); SODIUM 140 MMOL/L (135-145); TOTAL CARBON DIOXIDE 25.3 MMOL/L (24-32); TOTAL PROTEIN 7.5 G/DL (6.4-8.2); eGFR 72 ML/MIN
[2022-10-20] MEDS: morphine 4 MG/ML inj SYRINge IV PRN ×3 (19:53→20:41)
[2022-10-20] MEDS ORDERED: proCHLORperazine 10 MG/2 ml inj IV ONE (20:40)
[2022-10-20] MEDS ORDERED: morphine 4 MG/ML inj SYRINge IV ONE (21:25)
[2022-10-20 22:00] VITALS: BP 114/70
[2022-10-20] MEDS ORDERED: PROC-8 PO (22:05)
== END 2022-10-20 22:48 | disposition home or self-care (01) ==
LOC: ER 18:44
DX: R11.2 Nausea with vomiting, unspecified (principal); R10.84 Generalized abdominal pain; J45.909 Unspecified asthma, uncomplicated; F12.90 Cannabis use, unspecified, uncomplicated; Z98.890 Other specified postprocedural states; Z91.018 Allergy to other foods
CPT/HCPCS: 36415; 80053; 83690; 85025; 96361; 96374; 96375; 96376; 99285; J0780; J2270; J2405; J7030

== ENCOUNTER 2023-01-24 15:14 | Emergency (ER) | payer MEDICAID ==
[~2023-01-24] VITALS: Ht 157.5 cm; Wt 80.0 kg
[~2023-01-24 15:14] MED LIST changes: +PROC-8 PO
[2023-01-24 15:19] VITALS: TEMP 97
[2023-01-24 16:06] LABS: BASOPHILS % (AUTO) 0.3 % (0-1); EOSINOPHILS # (AUTO) 0.1 X10'3 (0-0.9); EOSINOPHILS % (AUTO) 1.1 % (0-6); HEMATOCRIT 39.8 % (35.0-45.0); HEMOGLOBIN 13.2 g/dl (12.0-16.0); MEAN CORPUSCULAR HGB CONC 33.3 g/dL (33.0-36.5); MEAN CORPUSCULAR VOLUME 86.9 FL (78-98); MEAN PLATELET VOLUME 7.3 FL (7.4-10.4); MONOCYTES # (AUTO) 0.6 X10'3 (0-0.9); MONOCYTES % (AUTO) 8.7 % (2-12); NEUTROPHILS % (AUTO) 59.9 % (42-75); PLATELET COUNT 317 X10'3 (140-440); RED BLOOD COUNT 4.57 X10'6 (4.20-5.60); RED CELL DISTRIBUTION WIDTH 14.5 % (11.5-14.5); WHITE BLOOD COUNT 6.6 X10'3 (4.5-11.0)
[2023-01-24 16:08] VITALS: BP 135/85; PULSE 75; RESP 18; O2SAT 100
[2023-01-24 16:24] LABS: ALANINE AMINOTRANSFERASE 22 U/L (12-78); ALBUMIN/GLOBULIN RATIO 1.1 (1.1-1.5); ALKALINE PHOSPHATASE 73 IU/L (46-116); AMYLASE 42 U/L (25-115); ANION GAP 11 (8-16); ASPARTATE AMINO TRANSFERASE 17 U/L (10-37); BILIRUBIN,TOTAL 0.2 MG/DL (0.1-1.0); BLOOD UREA NITROGEN 16 MG/DL (7-18); BUN/CREATININE RATIO 16.8 (10.0-20.0); CALCIUM 9.3 MG/DL (8.5-10.1); CHLORIDE 104 MMOL/L (99-107); CREATININE 0.95 MG/DL (0.40-0.90); GLUCOSE 94 MG/DL (70-104); LIPASE 93 U/L (73-393); POTASSIUM 3.7 MMOL/L (3.5-5.1); SODIUM 139 MMOL/L (135-145); TOTAL CARBON DIOXIDE 23.6 MMOL/L (24-32); TOTAL PROTEIN 7.8 G/DL (6.4-8.2); eCRCL 64 ML/MIN; eGFR 66 ML/MIN
== END 2023-01-25 00:13 | disposition left against medical advice (07) ==
LOC: ER 15:15
DX: E86.0 Dehydration (principal); Z53.21 Procedure and treatment not carried out due to patient leaving prior to being seen by health care provider
CPT/HCPCS: 36415; 80053; 82150; 83690; 85025; 99281

== ENCOUNTER 2023-12-14 04:19 | Emergency (ER) | payer MEDICAID ==
[~2023-12-14] VITALS: Ht 157.5 cm; Wt 81.8 kg
[~2023-12-14 04:19] MED LIST changes: +ONDA-243 PO; -ONDA4TAB12 PO
[2023-12-14] MEDS ORDERED: LETR2.5T7 PO (04:50)
[2023-12-14] MEDS ORDERED: LORA-269 PO (04:50)
[2023-12-14] MEDS ORDERED: DEXT10CA19 PO (04:50)
[2023-12-14] MEDS ORDERED: ESCI20TA39 PO (04:50)
[2023-12-14] MEDS ORDERED: MULT-1085 PO (04:50)
[2023-12-14] MEDS ORDERED: LORA10TA7 PO (04:50)
[2023-12-14 05:38] LABS: BASOPHILS % (AUTO) 0.3 % (0-1); EOSINOPHILS # (AUTO) 0.2 X10'3 (0-0.9); EOSINOPHILS % (AUTO) 2.6 % (0-6); HEMATOCRIT 37.2 % (35.0-45.0); HEMOGLOBIN 12.2 g/dl (12.0-16.0); LYMPHOCYTES # (AUTO) 1.6 X10'3 (1.1-4.8); LYMPHOCYTES % (AUTO) 26.8 % (21-51); MEAN CORPUSCULAR HEMOGLOBIN 28.3 PG (27.0-31.0); MEAN CORPUSCULAR HGB CONC 32.8 g/dL (33.0-36.5); MEAN CORPUSCULAR VOLUME 86.4 FL (78-98); MEAN PLATELET VOLUME 7.2 FL (7.4-10.4); MONOCYTES # (AUTO) 0.6 X10'3 (0-0.9); MONOCYTES % (AUTO) 9.6 % (2-12); NEUTROPHILS # (AUTO) 3.6 X10'3 (1.8-7.7); NEUTROPHILS % (AUTO) 60.7 % (42-75); PLATELET COUNT 325 X10'3 (140-440); RED BLOOD COUNT 4.31 X10'6 (4.20-5.60); RED CELL DISTRIBUTION WIDTH 14.6 % (11.5-14.5); WHITE BLOOD COUNT 5.9 X10'3 (4.5-11.0)
[2023-12-14 05:54] LABS: ALANINE AMINOTRANSFERASE 27 U/L (12-78); ALBUMIN 3.3 G/DL (3.4-5.0); ALBUMIN/GLOBULIN RATIO 0.9 (1.1-1.5); ALKALINE PHOSPHATASE 56 IU/L (46-116); ANION GAP 7 (8-16); ASPARTATE AMINO TRANSFERASE 14 U/L (10-37); BILIRUBIN,TOTAL 0.4 MG/DL (0.1-1.0); BLOOD UREA NITROGEN 16 MG/DL (7-18); BUN/CREATININE RATIO 16.8 (10.0-20.0); CALCIUM 8.7 MG/DL (8.5-10.1); CHLORIDE 105 MMOL/L (99-107); CREATININE 0.95 MG/DL (0.40-0.90); GLUCOSE 98 MG/DL (70-104); LIPASE 42 U/L (16-77); POTASSIUM 3.8 MMOL/L (3.5-5.1); SODIUM 140 MMOL/L (135-145); TOTAL CARBON DIOXIDE 27.8 MMOL/L (24-32); TOTAL PROTEIN 6.8 G/DL (6.4-8.2); eCRCL 64 ML/MIN; eGFR 66 ML/MIN
[2023-12-14 06:06] LABS: HCG SERUM QL NEGATIVE
[2023-12-14] MEDS ORDERED: iohexol 300mg/ml 100ml inj. ONE (06:13)
[2023-12-14] MEDS: glycopyrrolate 0.2mg/ml inj IV ONE (09:59)
[2023-12-14] MEDS: acetaminophen 1,000mg/100ml IV 100 ML IV STA (10:00)
[2023-12-14] MEDS: normal saline 1000ML IV soln IVB ONE (10:01)
[2023-12-14 14:43] VITALS: BP 118/81; PULSE 58; RESP 16; TEMP 98.3; O2SAT 100
== END 2023-12-14 14:35 | disposition home or self-care (01) ==
LOC: ER 04:19
DX: R10.9 Unspecified abdominal pain (principal); R11.0 Nausea; J45.909 Unspecified asthma, uncomplicated; F12.90 Cannabis use, unspecified, uncomplicated; Z88.1 Allergy status to other antibiotic agents; Z91.018 Allergy to other foods
CPT/HCPCS: 36415; 74177; 80053; 83690; 84703; 85025; 96365; 96366; 96375; 99285; J0131; J3490; J7030; Q9967

== ENCOUNTER 2024-03-01 08:08 | Emergency (ER) | payer MEDICAID ==
[~2024-03-01] VITALS: Ht 157.5 cm; Wt 84.0 kg
[~2024-03-01 08:08] MED LIST changes: +DEXT10CA19 PO; -ESCI10TA45 PO; +ESCI20TA39 PO; -GABA-532 PO; -HYDR-4353 PO; -HYDR-4383 PO; +LETR2.5T7 PO; -LEVO1IUD VG; +LORA10TA7 PO; -LORA1TAB PO; +MULT-1085 PO; -ONDA4TAB6 PO; -ONDA8TAB6 PO; -ORPH100T4 PO; -OXYC-145 PO; -PANT-47 PO; -PROC-8 PO; -PROM25SU9 RC; -PSYL1PAC9 PO; -RES15C PO; -SUCR1TAB PO
[2024-03-01 08:10] VITALS: TEMP 98.6
[2024-03-01 09:23] LABS: BASOPHILS % (AUTO) 0.3 % (0-1); EOSINOPHILS % (AUTO) 0.4 % (0-6); HEMATOCRIT 41.4 % (35.0-45.0); HEMOGLOBIN 13.7 g/dl (12.0-16.0); LYMPHOCYTES # (AUTO) 1.3 X10'3 (1.1-4.8); LYMPHOCYTES % (AUTO) 12.8 % (21-51); MEAN CORPUSCULAR HEMOGLOBIN 28.3 PG (27.0-31.0); MEAN CORPUSCULAR HGB CONC 33.1 g/dL (33.0-36.5); MEAN CORPUSCULAR VOLUME 85.4 FL (78-98); MEAN PLATELET VOLUME 7.4 FL (7.4-10.4); MONOCYTES # (AUTO) 0.5 X10'3 (0-0.9); MONOCYTES % (AUTO) 5.2 % (2-12); NEUTROPHILS # (AUTO) 8.1 X10'3 (1.8-7.7); NEUTROPHILS % (AUTO) 81.3 % (42-75); PLATELET COUNT 328 X10'3 (140-440); RED BLOOD COUNT 4.85 X10'6 (4.20-5.60); RED CELL DISTRIBUTION WIDTH 15.4 % (11.5-14.5)
[2024-03-01 09:47] LABS: ALANINE AMINOTRANSFERASE 22 U/L (12-78); ALKALINE PHOSPHATASE 65 IU/L (46-116); ANION GAP 9 (8-16); ASPARTATE AMINO TRANSFERASE 23 U/L (10-37); BILIRUBIN,TOTAL 0.3 MG/DL (0.1-1.0); BLOOD UREA NITROGEN 19 MG/DL (7-18); BUN/CREATININE RATIO 20.4 (10.0-20.0); CALCIUM 9.6 MG/DL (8.5-10.1); CHLORIDE 105 MMOL/L (99-107); CREATININE 0.93 MG/DL (0.40-0.90); GLUCOSE 88 MG/DL (70-104); POTASSIUM 4.3 MMOL/L (3.5-5.1); SODIUM 139 MMOL/L (135-145); TOTAL CARBON DIOXIDE 25.4 MMOL/L (24-32); TOTAL PROTEIN 7.9 G/DL (6.4-8.2); eCRCL 65 ML/MIN; eGFR 67 ML/MIN
[2024-03-01 09:51] LABS: LIPASE 48 U/L (16-77)
[2024-03-01 10:58] LABS: HCG SERUM QL NEGATIVE
[2024-03-01] MEDS: metoclopramide 5 mg/ml inj IV ONE (10:58)
[2024-03-01] MEDS: ketorolac trometh 15mg/ml vial 15 MG/ML ML IV ONE (10:59)
[2024-03-01] MEDS: normal saline 1000ML IV soln IVB ONE (10:59)
[2024-03-01] MEDS: normal saline 1000ml 1,000 ML IV SCH (12:00)
[2024-03-01] MEDS: magnesium hydroxide 30ml (MOM) UD suspension PO STA (12:01)
[2024-03-01] MEDS: HYDROmorphone inj. 0.5 MG/0.5 ML DISP.SYRIN IV STA (12:01)
[2024-03-01 12:18] LABS: URINE HCG NEGATIVE (NEG)
[2024-03-01 12:22] LABS: BILIRUBIN,URINE NEGATIVE (Neg); CLARITY,URINE SLIGHTLY CLOUDY (Clear); COLOR,URINE YELLOW (Yellow); GLUCOSE, URINE NEGATIVE (Neg); KETONES,URINE 15 mg/dl (Neg); LEUKOCYTE ESTERASE ,URINE NEGATIVE (Neg); NITRITES, URINE NEGATIVE (Neg); OCCULT BLOOD,URINE NEGATIVE (Neg); PH,URINE 5.5 (4.8-8.0); PROTEIN,URINE NEGATIVE (Neg); UROBILINOGEN,URINE 0.2 E.U/dL (0.2-1.0)
[2024-03-01 12:24] LABS: UA COLLECTION TYPE CLN CATCH MIDSTREAM
[2024-03-01 12:33] LABS: MUCUS STRANDS MANY /LPF (Neg); SQUAMOUS EPITHELIAL CELL,UR MANY /LPF (FEW)
[2024-03-01 12:34] LABS: BACTERIA,URINE 1+ /HPF (Neg); RBC,URINE 0-2 /HPF (0-2); WBC,URINE 0-4 /HPF (0-4)
[2024-03-01 14:19] VITALS: BP 106/67; PULSE 56; RESP 18; O2SAT 97
== END 2024-03-01 14:20 | disposition home or self-care (01) ==
LOC: ER 08:08
DX: R10.84 Generalized abdominal pain (principal); K59.00 Constipation, unspecified; R11.2 Nausea with vomiting, unspecified; J45.909 Unspecified asthma, uncomplicated; G89.29 Other chronic pain; F41.9 Anxiety disorder, unspecified; F32.A Depression, unspecified; F12.90 Cannabis use, unspecified, uncomplicated; Z88.1 Allergy status to other antibiotic agents; Z91.018 Allergy to other foods; Z79.899 Other long term (current) drug therapy; Z85.89 Personal history of malignant neoplasm of other organs and systems; Z90.49 Acquired absence of other specified parts of digestive tract; Z98.890 Other specified postprocedural states
CPT/HCPCS: 36415; 74018; 80053; 81001; 81025; 83690; 84703; 85025; 96361; 96374; 96375; 99284; J1170; J1885; J2765; J7030

== ENCOUNTER 2024-10-24 18:59 | Inpatient (IN) | payer MEDICAID, OTHER ==
[~2024-10-24] VITALS: Ht 157.5 cm; Wt 82.9 kg
[2024-10-24 19:29] LABS: BASOPHILS # (AUTO) 0.1 X10'3 (0-0.2); EOSINOPHILS % (AUTO) 0.5 % (0-6); HEMATOCRIT 38.3 % (35.0-45.0); HEMOGLOBIN 12.7 g/dl (12.0-16.0); LYMPHOCYTES % (AUTO) 25.1 % (21-51); MEAN CORPUSCULAR HGB CONC 33.1 g/dL (33.0-36.5); MEAN CORPUSCULAR VOLUME 78.7 FL (78-98); MEAN PLATELET VOLUME 7.4 FL (7.4-10.4); MONOCYTES # (AUTO) 0.3 X10'3 (0-0.9); MONOCYTES % (AUTO) 4.1 % (2-12); NEUTROPHILS # (AUTO) 5.6 X10'3 (1.8-7.7); NEUTROPHILS % (AUTO) 69.3 % (42-75); PLATELET COUNT 340 X10'3 (140-440); RED BLOOD COUNT 4.87 X10'6 (4.20-5.60); RED CELL DISTRIBUTION WIDTH 15.8 % (11.5-14.5)
[2024-10-24 19:55] LABS: ALANINE AMINOTRANSFERASE 24 U/L (12-78); ALBUMIN/GLOBULIN RATIO 1.2 (1.1-1.5); ALKALINE PHOSPHATASE 77 IU/L (46-116); ANION GAP 8 (8-16); ASPARTATE AMINO TRANSFERASE 15 U/L (10-37); BILIRUBIN,TOTAL 0.2 MG/DL (0.1-1.0); BLOOD UREA NITROGEN 15 MG/DL (7-18); BUN/CREATININE RATIO 16.5 (10.0-20.0); CALCIUM 9.4 MG/DL (8.5-10.1); CHLORIDE 106 MMOL/L (99-107); CREATININE 0.91 MG/DL (0.40-0.90); GLUCOSE 87 MG/DL (70-104); LIPASE 35 U/L (16-77); POTASSIUM 3.7 MMOL/L (3.5-5.1); SODIUM 140 MMOL/L (135-145); TOTAL CARBON DIOXIDE 25.8 MMOL/L (24-32); TOTAL PROTEIN 7.4 G/DL (6.4-8.2); eCRCL 66 ML/MIN; eGFR 69 ML/MIN
[2024-10-24 22:47] LABS: HCG SERUM QL NEGATIVE
[2024-10-24] MEDS ORDERED: iohexol 300mg/ml 100ml inj. ONE (23:25)
[2024-10-24] MEDS: metoclopramide 5 mg/ml inj IV STA (23:36)
[2024-10-24] MEDS: normal saline 1000ml 1,000 ML IV STA (23:37)
[2024-10-25] MEDS: ondansetron/PF 4mg/2ml inj IV ONE ×2 (01:00→01:48)
[2024-10-25] MEDS: HYDROmorphone 1 mg/ml syringe IV ONE (01:01)
[2024-10-25] MEDS: normal saline 1000ml 1,000 ML IV ONE ×3 (01:48→17:44)
[2024-10-25] MEDS ORDERED: magnesium hydroxide 30ml (MOM) UD suspension PO PRN (01:50)
[2024-10-25] MEDS ORDERED: potassium Cl 40MEQ/1/2NS 520ml 520 ML IV PRN (01:50)
[2024-10-25] MEDS ORDERED: acetaminophen 325mg tablet PO PRN (01:50)
[2024-10-25] MEDS ORDERED: potassium Cl 20 mEq SR tablet PO PRN ×2 (01:50)
[2024-10-25] MEDS ORDERED: mag hydrox/Alum hydrox/simeth 30ml oral suspension PO PRN (01:50)
[2024-10-25] MEDS ORDERED: morphine 2 MG/ML inj. syringe IV PRN (01:50)
[2024-10-25] MEDS ORDERED: magnesium sulf-water 2g/50mL 50 ML IV PRN (01:50)
[2024-10-25] MEDS ORDERED: magnesium Cl slow-release 64mg tablet PO PRN (01:50)
[2024-10-25] MEDS ORDERED: magnesium sulf-water 4G/100mL 100 ML IV PRN (01:50)
--- NOTE | 2024-10-25 01:55 | HISTORY AND PHYSICAL-Residence ---
History & Physical Providers to CC Resident Creating Document: DEE ROSEBALTAZAR RA, RES ~ History of Present Illness Primary Medical Doctor: [facility] Reason for Admit\Complaint: Abdominal pain History of Present Illness 39-year-old female patient with past medical history of partial small-bowel obstruction, anxiety, came to the hospital with chief complaint of abdominal pain. The patient reports that she started having abdominal pain yesterday, scaled as 10/10 in intensity, described as stabbing type, without radiation, no apparent cause. Associated to these symptom the patient endorsed for episodes of vomiting food type today. The patient states that she had experienced a similar symptom before, which led her to go to the emergency department at [facility] where she was diagnosed with partial small-bowel obstruction. Her last bowel movement was yesterday. The patient currently denies chest pain, palpitations, shortness of breath, urinary symptoms. Allergies: Coded Allergies: wheat (Verified Allergy, Intermediate, 10/24/24) SEVERE INTESTINAL DISCOMFORT azithromycin (Verified Allergy, Mild, RASH, 10/24/24) corn (Verified Allergy, Mild, 10/24/24) INTESTINAL PAIN soy (Verified Allergy, Mild, 10/24/24) INTESTINAL DISCOMFORT Uncoded Allergies: PEANUTS (Allergy, Intermediate, 05/14/18) INTESTINAL DISCOMFORT LACTOSE INTOLERATE (Allergy, Unknown, 01/03/17) Home Medications Home Medications Active Ondansetron Odt (Ondansetron HCl) 4 Mg Tab.rapdis 1 Tablet PO Q6H PRN Reported Multi Vitamin Daily (Multivitamin) 1 Each Tablet 1 Tab PO DAILY 30 Days Ativan (Lorazepam) 1 Mg Tablet 1 Tab PO BID PRN Escitalopram Oxalate 20 Mg Tablet 1 Tab PO DAILY Dextroamp-Amphet ER 10 mg Cap (Dextroamphetamine/Amphetamine) 10 Mg Cap.er.24h 1 Cap PO QAM Letrozole 2.5 Mg Tablet 1 Tab PO PRN PRN Loratadine 10 Mg Tablet 1 Tab PO DAILY Past Medical History Past Medical History Small-bowel obstruction two years ago. Anxiety Past Surgical History Surgical History Comment Appendectomy. Partial large bowel resection in 2009 due to precancerous polyps. Colostomy bag after large bowel resection Tonsillectomy. Past Social History Smoking: Less than 1 pack/day (She endorses smoking half a pack a day for two years.) Alcohol Use: None Drug Use: None Lives with: Alone Lives In: Homeless Occupation: employed ROS All Other Systems: Reviewed and Negative Exam Vitals: Vital Signs Date Time Temp Pulse Resp B/P (MAP) Pulse Ox O2 Delivery O2 Flow Rate FiO2 10/25/24 01:03 97.6 74 135/84 (101) 97 0 10/24/24 19:03 16 Physical exam: General: Well alert, well oriented, not confused, not agitated, not in acute distress, well cooperated during the physical. HEENT: Conjunctive are pink, sclerae clear, no icterus, pupil is equal in both sides, reactive to light, no ear discharge, no pharyngeal erythema or an edema. Neck: Supple, no JVD, no lymphadenopathy and thyromegaly. Chest: Equal air entry on both lungs, no additional sounds no rhonchi no wheezing at the moment. Cardiovascular: S1-S2 regular sinus rhythm and, regular rate, no gallops, no rubs, no murmurs Abdomen: No visible peristalsis, no evidenced bowel sounds, tenderness with superficial palpation, presence of scar in the midline of the abdomen from previous surgery. Extremities: No obvious deformities, no pitting edema bilaterally, capillary refill intact, peripheral pulsations are intact on both sides Central Nervous System: No focal neurological deficits, no motor or sensory weakness in all 4 extremities, could move all 4 extremities, 2+ deep tendon reflexes, negative Babinski. Musculoskeletal: No joint swelling, deformities, inflammations, and no scoliosis and back tenderness Diagnostic Data Last Recorded Lab Results: 10/24/24191910/24/241919 Advance Care Planning Advanced Care plannin - 30 Minutes (I spent a total of 17 minutes on reviewing various resuscitative measures/ACP with the patient at the time of admission. The patient has decided on a full code status.) Additional Plan Assessment and plan: 39-year-old female patient came to the hospital with chief complaint of abdominal pain. Abdominal pain: Small-bowel obstruction: The patient came to the hospital with chief complaint of abdominal pain. The patient had similar symptoms before where she was diagnosed with partial small- bowel obstruction, as per patient the symptoms are similar. CT scan of the abdomen suggestive of small-bowel obstruction. Follow-up CT scan of the abdomen with oral contrast. Follow-up lactic acid. NG tube placement. NPO. NS at 80 mL/hour. Morphine for pain management. Dr. Frias consulted. Awaiting for recommendations. Anxiety: Lorazepam 1 mg IV b.i.d. PRN. Code status: Full code DVT prophylaxis: SCDs Analgesia/sedation: Morphine Line/tube: PIV GI prophylaxis: None Nutrition: NPO PT: No Prognosis: Guarded Disposition: The patient will be admitted to surgical floor. Baltazar Rose Internal Medicine Resident [facility] Date of Service: October 25, 2024 Billing Provider: BRICE CHANCE Jr., FRANCO LUIS, RES October 25, 2024 01:54
[2024-10-25 02:31] LABS: MAGNESIUM 1.5 MG/DL (1.5-2.4); POTASSIUM 3.6 MMOL/L (3.5-5.1)
[2024-10-25 02:45] LABS: HEMOGLOBIN A1C 5.4 % (4.5-6.2); THYROID STIMULATING HORMONE 1.25 ulU/ml (0.34-4.50)
--- NOTE | 2024-10-25 03:12 | RADIOLOGY REPORT ---
Clinical History ngt placement Comparison None Technique: frontal chest x-ray Without Contrast WILLOW LOPES, [id number] Findings: Heart - normal lungs - no consolidation. bones - no acute fracture. Other- nasogastric tube tip projects over the stomach. Impression: 1. No acute cardiopulmonary disease 2. Nasogastric tube tip projects over the stomach in proper location This report was electronically signed by Robert Molina MD on 10/25/2024 3:09:41 AM.
[2024-10-25] MEDS: normal saline 1000ml 1,000 ML IV SCH (03:47)
--- NOTE | 2024-10-25 04:16 | RADIOLOGY REPORT ---
Clinical History lower abd pain Comparison CT ABD/PEL on 12/14/2023, 390 images. Technique: Axial images were obtained from the dome of the diaphragm to the pubic symphysis with intr avenous contrast and without oral contrast. Coronal and sagittal reformations were performed. All CT scans at this medical facility are performed using dose modulation techniques as appropriate t o a performed exam including the following: Automated exposure control was utilized; adjustment of th e mA and/or kV according to patient size; and use of iterative reconstruction technique. All CT studies are reported to the Dose Index Registry of the [employer]. Contrast: omni 300 100ml Radiation Dose: CTDI (mGy): 21.8; DLP (mGy-cm): 1230 WILLOW LOPES, [id number] Findings: Only the image/images are available from the comparison CT abdomen and pelvis December 14, 2023. The lung bases demonstrate dependent atelectatic changes. The visualized heart is normal in size. The liver is normal. The gallbladder is normal. The pancreas is normal. The spleen is normal. The adrenal glands are normal. The right kidney is normal. The left kidney is normal. The visualized stomach is normal. Again seen is small and large bowel surgery. There are multiple dilated small bowel loops with air-f luid levels likely representing a partial small bowel obstruction. The visualized bladder is normal. The aorta is normal for the patient's age. Again seen is a ventral abdominal wall scar. There are degenerative changes of the spine. Impression: Findings likely represent a partial SBO. This report was electronically signed by Fela Otero MD on 10/25/2024 4:13:32 AM. The above findings were reported to Dr. Fong. The call was initiated at 10/25/2024 4:14:42 AM.
[2024-10-25] MEDS: ondansetron/PF 4mg/2ml inj IV PRN (04:53)
[2024-10-25] MEDS: diatr meglu/diatrizoate 30ml oral sol.-(3 dose) bottle PO SCH (04:57)
[2024-10-25] MEDS: morphine 2 MG/ML inj. syringe IV PRN (05:43)
--- NOTE | 2024-10-25 05:50 | Physician Documentation ---
History of Present Illness Chief Complaint: Abdominal Pain w/vomiting Stated Complaint: ABD PAIN Time Seen by MD: 23:22 Primary Medical Doctor: [facility] Mode of Arrival: POV HPI 39-year-old female patient with past medical history of partial small-bowel obstruction, anxiety, came to the hospital with chief complaint of abdominal pain. The patient reports that she started having abdominal pain yesterday, scaled as 10/10 in intensity, described as stabbing type, without radiation, no apparent cause. Associated to these symptom the patient endorsed for episodes of vomiting food type today. The patient states that she had experienced a similar symptom before, which led her to go to the emergency department at [facility] where she was diagnosed with partial small-bowel obstruction. Her last bowel movement was yesterday. The patient currently denies chest pain, palpitations, shortness of breath, urinary symptoms. Medication Reconciliation Allergies: Coded Allergies: wheat (Verified Allergy, Intermediate, 10/24/24) SEVERE INTESTINAL DISCOMFORT azithromycin (Verified Allergy, Mild, RASH, 10/24/24) corn (Verified Allergy, Mild, 10/24/24) INTESTINAL PAIN soy (Verified Allergy, Mild, 10/24/24) INTESTINAL DISCOMFORT Uncoded Allergies: PEANUTS (Allergy, Intermediate, 05/14/18) INTESTINAL DISCOMFORT LACTOSE INTOLERATE (Allergy, Unknown, 01/03/17) Scheduled Dextroamphetamine/Amphetamine (Dextroamp-Amphet ER 10 mg Cap), 1 CAP PO QAM, (Reported) Escitalopram Oxalate (Escitalopram Oxalate), 1 TAB PO DAILY, (Reported) Loratadine (Loratadine), 1 TAB PO DAILY, (Reported) Multivitamin (Multi Vitamin Daily), 1 TAB PO DAILY, (Reported) Scheduled PRN Letrozole (Letrozole), 1 TAB PO PRN PRN for call pharmacy for dose, (Reported) Lorazepam (Ativan), 1 TAB PO BID PRN for for anxiety/agitation, (Reported) ONDANSETRON ODT 4mg tablet (Ondansetron Odt), 1 TABLET PO Q6H PRN for nausea/vomiting Past Medical History Past Medical History: *CARDIOVASCULAR*, Asthma, *GI/HEPATOBILIARY*, Bowel Obstruction, Hernia, Chronic Pain, Cervical Cancer/Dysplasia, Anxiety, Depression Past Surgical History: abdominal surgery, appendectomy, colectomy, tonsillectomy Other Past Surgical History: Hernia repair. Total laparoscopic proctocolectomy (2009) Smoking Status: Current every day smoker Alcohol Use: None Drug Use: none Lives with: Alone Lives In: Homeless Occupation: employed Review of Systems All Other Systems at this time: Reviewed and Negative Physical Exam Vital Signs: RN Vital Signs have been reviewed: Yes, Temperature: 97.6, Source: Oral, Heart Rate: 80, Respiratory Rate: 14, BP: 141/91, Pulse Oximetry: 100, Weight: 82.270 Oxygen Flow Rate: 0 Physical Exam HEENT: PERRL, moist oral mucosa, EOMI Pulmonary: No respiratory distress Cardiac: RRR, no murmur, rub or gallop GI: +distended, +diffusely tender MSK: no deformity Skin: w/d/i, no rash Neuro: alert, nonfocal Psych: normal affect Progress Results/Orders Results/Orders Orders - DION HILLS MD Nasal Gastric Tube (10/25/24 ) Page Hospitalist (10/25/24 00:39) Chest,Single View (10/25/24 01:45) Completed Orders - DION HILLS MD Ondansetron Inj. (Zofran 4mg/2ml Vial) (10/24/24 23:35) Normal Saline 1000ml (Sodium Chloride 10 (10/24/24 23:35) Normal Saline 1000ml (Sodium Chloride 10 (10/25/24 00:35) Ondansetron Inj. (Zofran 4mg/2ml Vial) (10/25/24 00:40) Hydromorphone 1 Mg/Ml/Pf (Dilaudid Inj.) (10/25/24 00:40) Chest,Single View (10/25/24 01:45) Medications Received in ER Medications (Trade) Dose Ordered Sig/Louie Route PRN Reason Start Time Stop Time Status Last Admin Dose Admin Sodium Chloride 1,000 ml @ 1,000 mls/hr ONCE STAT IV 10/24/24 22:04 10/24/24 23:03 DC 10/24/24 23:37 1,000 MLS/HR (Reglan inj) 10 mg ONCE STAT IV 10/24/24 22:04 10/24/24 22:19 DC 10/24/24 23:36 10 MG (Zofran 4mg/2ml vial) 4 mg ONCE ONCE IV 10/24/24 23:35 10/24/24 23:37 DC 10/25/24 01:00 4 MG Sodium Chloride 1,000 ml @ 1,000 mls/hr ONCE ONCE IV 10/24/24 23:35 10/25/24 00:34 DC 10/25/24 01:48 1,000 MLS/HR Sodium Chloride 1,000 ml @ 1,000 mls/hr ONCE ONCE IV 10/25/24 00:35 10/25/24 01:34 DC 10/25/24 02:01 1,000 MLS/HR (Zofran 4mg/2ml vial) 4 mg ONCE ONCE IV 10/25/24 00:40 10/25/24 01:19 DC 10/25/24 01:48 4 MG (Dilaudid inj.) 1 mg ONCE ONCE IV 10/25/24 00:40 10/25/24 00:41 DC 10/25/24 01:01 1 MG Vital Signs 10/24/24 10/25/24 10/25/24 10/25/24 19:03 01:03 01:55 02:03 Temp 97.6 97.6 Pulse 89 74 Resp 16 16 B/P (MAP) 129/82 135/84 (101) Pulse Ox 100 97 O2 Flow Rate 0 10/25/24 03:16 Temp 97.6 Pulse 80 Resp 14 B/P (MAP) 141/91 (108) Pulse Ox 100 O2 Flow Rate 0 Laboratory Tests Test 10/24/24 22:11 10/25/24 02:14 10/25/24 05:00 Human Chorionic Gonadotropin, Qual Negative Potassium Level 3.6 Hemoglobin A1c 5.4 Lactic Acid Level 2.3 H 2.7 H Magnesium Level 1.5 Thyroid Stimulating Hormone (TSH) 1.25 Medical Decision Making Findings 39 year old female with likely recurrent SBO, confirmed on CT scan. NGT/IVF, care transferred to hospitalist. Differential Dx:Considerations: Include: Appendicitis, Bowel obstruction, Constipation, Diverticular disease, Pancreatitis, Urinary obstruction, Urinary tract infection, Urolithiasis Departure Disposition: ADMITTED INPATIENT Admitted to Inpatient Unit: to hospitalist Admission Level of Care: Med/Surg Impression: Primary Impression: Small bowel obstruction Condition: Stable Referrals: NO PRIMARY CARE PROVIDER (PCP) Education Educated: Patient Educated regarding: diagnosis, treatment, prognosis, need for follow up Signature Scribe Signature: . Attestation: . DION HILLS MD October 25, 2024 05:50
[2024-10-25 07:33] VITALS: BP 117/67; PULSE 86; RESP 14; TEMP 98; O2SAT 99
[2024-10-25 07:49] LABS: BILIRUBIN,URINE NEGATIVE (Neg); CLARITY,URINE CLEAR (Clear); COLOR,URINE YELLOW (Yellow); GLUCOSE, URINE NEGATIVE (Neg); KETONES,URINE NEGATIVE (Neg); LEUKOCYTE ESTERASE ,URINE NEGATIVE (Neg); NITRITES, URINE NEGATIVE (Neg); OCCULT BLOOD,URINE NEGATIVE (Neg); PH,URINE 5.5 (4.8-8.0); PROTEIN,URINE NEGATIVE (Neg); UROBILINOGEN,URINE 0.2 E.U/dL (0.2-1.0)
[2024-10-25 07:57] LABS: UA COLLECTION TYPE CLN CATCH MIDSTREAM
[2024-10-25] MEDS: K and/or MAG REPLACEMENT MC SCH (08:00)
[2024-10-25] MEDS: docusate sod 100mg capsule PO SCH (08:00)
[2024-10-25 09:07] LABS: BASOPHILS % (AUTO) 0.2 % (0-1); EOSINOPHILS % (AUTO) 0.1 % (0-6); HEMATOCRIT 43.2 % (35.0-45.0); HEMOGLOBIN 14.2 g/dl (12.0-16.0); LYMPHOCYTES # (AUTO) 0.5 X10'3 (1.1-4.8); LYMPHOCYTES % (AUTO) 9.9 % (21-51); MEAN CORPUSCULAR HEMOGLOBIN 26.2 PG (27.0-31.0); MEAN CORPUSCULAR HGB CONC 32.9 g/dL (33.0-36.5); MEAN CORPUSCULAR VOLUME 79.7 FL (78-98); MEAN PLATELET VOLUME 7.5 FL (7.4-10.4); MONOCYTES # (AUTO) 0.5 X10'3 (0-0.9); MONOCYTES % (AUTO) 10.9 % (2-12); NEUTROPHILS % (AUTO) 78.9 % (42-75); PLATELET COUNT 358 X10'3 (140-440); RED BLOOD COUNT 5.42 X10'6 (4.20-5.60); RED CELL DISTRIBUTION WIDTH 16.1 % (11.5-14.5); WHITE BLOOD COUNT 5.1 X10'3 (4.5-11.0)
[2024-10-25 10:04] VITALS: BP 112/82; PULSE 107; RESP 14; TEMP 98.6; O2SAT 100
[2024-10-25 10:17] LABS: ALANINE AMINOTRANSFERASE 20 U/L (12-78); ALBUMIN 3.2 G/DL (3.4-5.0); ALKALINE PHOSPHATASE 63 IU/L (46-116); ANION GAP 10 (8-16); ASPARTATE AMINO TRANSFERASE 15 U/L (10-37); BILIRUBIN,TOTAL 0.4 MG/DL (0.1-1.0); BLOOD UREA NITROGEN 18 MG/DL (7-18); CALCIUM 8.3 MG/DL (8.5-10.1); CHLORIDE 108 MMOL/L (99-107); GLUCOSE 116 MG/DL (70-104); POTASSIUM 3.8 MMOL/L (3.5-5.1); SODIUM 144 MMOL/L (135-145); TOTAL CARBON DIOXIDE 25.6 MMOL/L (24-32); TOTAL PROTEIN 6.5 G/DL (6.4-8.2); eCRCL 60 ML/MIN; eGFR 62 ML/MIN
[2024-10-25] MEDS ORDERED: iohexol 300mg/ml 100ml inj. ONE (14:36)
--- NOTE | 2024-10-25 15:21 | RADIOLOGY REPORT ---
CT abdomen and pelvis with oral contrast INDICATION: sbo Comparison: 10/24/2024 TECHNIQUE: Serial axial images were performed through the abdomen and pelvis and then reformatted in the sagittal and coronal plane. All CT scans at this medical facility are performed using dose modula tion techniques as appropriate to a performed exam including the following: Automated exposure contro l was utilized; adjustment of the MA and/or KvP according to patient size; and use of iterative recon struction technique. FINDINGS: Liver is normal in size without mass. Spleen is normal in size without mass. There is ascites present surrounding the liver and spleen and extending down the pericolic gutters in to the pelvis There is vicarious excretion of contrast into the gallbladder. 1 mm right renal calculus without hydronephrosis. No masses in the adrenal glands or pancreas. No biliary dilatation. There is dilatation of the small bowel until the distal ileum. There are surgical sutures seen assoc iated with the small bowel as well as in the rectum. The urinary bladder is unremarkable Uterus is anteverted. No uterine or adnexal masses are present IMPRESSION: 1. Compared to previous study there is continuing distention of small-bowel loops suggesting small b owel obstruction. On the current exam there is some oral contrast seen in the distal bowel suggesting that there is no complete obstruction present however here is now some ascites present (not previous ly present) 2. Nurse caring for this patient was given a verbal report [id number] Computed Tomographic Radiation Dosimetry Report: Total CTDI vol = 21 mGy Total DLP = 1146 mGy-cm Low dose protocols were performed.
[2024-10-25] MEDS: Chloraseptic (Phenol) Spray 177ml MM PRN (17:42)
[2024-10-25 18:00] VITALS: BP 131/77; PULSE 87; RESP 16; TEMP 99.3; O2SAT 98
[2024-10-25] MEDS: diazepam inj 5 MG/ML inj. IV ONE (19:43)
[2024-10-25] MEDS: LORazepam 1 MG tablet PO PRN (20:00)
--- NOTE | 2024-10-25 20:29 | PROGRESS NOTE ---
Progress Note Dictate Providers to CC CC: PETER KEN MD ~ Progress Note: Subsequent surgical care on a 39-year-old woman who is hospital day two with small-bowel obstruction Loose bowel movements No abdominal pain No nausea Minimal output from the nasogastric tube Long history of multiple previous small bowel obstructions related to previous total abdominal colectomy DC nasogastric tube Full liquid diet Recommend following up with the colorectal surgeon to discuss interval, elective diagnostic laparoscopy to assess for possible adhesive disease leading to recurrent small-bowel obstructions Antibiotic Ordered?: N/A Objective Vitals Vital Signs Date Time Temp Pulse Resp B/P (MAP) Pulse Ox O2 Delivery O2 Flow Rate FiO2 10/25/24 18:23 15 10/25/24 10:04 98.6 107 112/82 (92) 100 Room Air 10/25/24 05:47 0 Lab Results: 10/25/24 0857 10/25/24 0857 PETER KEN MD October 25, 2024 20:29
[2024-10-25 22:00] VITALS: BP 130/73; PULSE 93; RESP 19; TEMP 99.6; O2SAT 99
[2024-10-26 04:58] LABS: BASOPHILS % (AUTO) 0.2 % (0-1); EOSINOPHILS # (AUTO) 0.2 X10'3 (0-0.9); EOSINOPHILS % (AUTO) 2.8 % (0-6); HEMATOCRIT 34.9 % (35.0-45.0); HEMOGLOBIN 11.5 g/dl (12.0-16.0); LYMPHOCYTES # (AUTO) 1.3 X10'3 (1.1-4.8); LYMPHOCYTES % (AUTO) 20.6 % (21-51); MEAN CORPUSCULAR HEMOGLOBIN 26.5 PG (27.0-31.0); MEAN CORPUSCULAR HGB CONC 32.9 g/dL (33.0-36.5); MEAN CORPUSCULAR VOLUME 80.5 FL (78-98); MEAN PLATELET VOLUME 7.4 FL (7.4-10.4); MONOCYTES # (AUTO) 0.9 X10'3 (0-0.9); MONOCYTES % (AUTO) 14.3 % (2-12); NEUTROPHILS # (AUTO) 3.9 X10'3 (1.8-7.7); NEUTROPHILS % (AUTO) 62.1 % (42-75); PLATELET COUNT 272 X10'3 (140-440); RED BLOOD COUNT 4.33 X10'6 (4.20-5.60); RED CELL DISTRIBUTION WIDTH 16.4 % (11.5-14.5); WHITE BLOOD COUNT 6.3 X10'3 (4.5-11.0)
[2024-10-26 05:18] LABS: ALANINE AMINOTRANSFERASE 18 U/L (12-78); ALBUMIN 2.7 G/DL (3.4-5.0); ALKALINE PHOSPHATASE 51 IU/L (46-116); ANION GAP 8 (8-16); ASPARTATE AMINO TRANSFERASE 11 U/L (10-37); BILIRUBIN,TOTAL 0.4 MG/DL (0.1-1.0); BLOOD UREA NITROGEN 10 MG/DL (7-18); BUN/CREATININE RATIO 10.9 (10.0-20.0); CALCIUM 8.2 MG/DL (8.5-10.1); CHLORIDE 110 MMOL/L (99-107); CHOL/HDL RATIO 2.6 (0.00-4.99); CHOLESTEROL 127 MG/DL (0-200); CREATININE 0.92 MG/DL (0.40-0.90); GLUCOSE 97 MG/DL (70-104); HDL CHOLESTEROL 48 MG/DL (35-60); LDL CHOLESTEROL 61 MG/DL (50-100); MAGNESIUM 1.5 MG/DL (1.5-2.4); POTASSIUM 3.7 MMOL/L (3.5-5.1); SODIUM 140 MMOL/L (135-145); TOTAL CARBON DIOXIDE 22.2 MMOL/L (24-32); TOTAL PROTEIN 5.5 G/DL (6.4-8.2); TRIGLYCERIDES 68 MG/DL (20-135); eCRCL 65 ML/MIN; eGFR 68 ML/MIN
[2024-10-26 06:00] VITALS: BP 107/75; PULSE 91; RESP 15; TEMP 98.2; O2SAT 95
[2024-10-26 08:00] VITALS: RESP 15; O2SAT 95
[2024-10-26 10:00] VITALS: BP 123/80; PULSE 83; RESP 14; TEMP 98.2; O2SAT 99
[2024-10-26] MEDS: normal saline 1000ml 1,000 ML IV ONE ×2 (17:12→20:00)
--- NOTE | 2024-10-26 17:25 | PROGRESS NOTE- Residence ---
Progress Note - Resident Providers to CC Resident Creating Document: TAYLA ESPINOZA, JOSIE CC: MILA AGEE MD ~ Antibiotic Timeout Antibiotic Ordered?: No Subjective Patient was examined at bedside. Patient complains of severe abdominal pain. Patient is passing flatus had bowel movements and denies nausea and vomitings. Objective Vital Signs Date Time Temp Pulse Resp B/P (MAP) Pulse Ox O2 Delivery O2 Flow Rate FiO2 10/26/24 15:24 15 10/25/24 22:00 99.6 93 130/73 (92) 99 Room Air 10/25/24 20:00 0.0 Result Diagram: 10/26/2443610/26/24436 General: Alert, awake, oriented, not in acute distress HEENT: PERRLA, no icterus, pallor, lymphadenopathy, carotid bruit Respiratory system: Bilateral vesicular breath sounds heard, no adventitious breath sounds CVS: S1-S2 heard, no murmurs/rubs/gallop GI: Surgical scar present on the abdomen, Generalized tenderness in the abdominal region, Soft, no organomegaly, no guarding/rigidity, bowel sounds present Neuro: No focal neurological deficits present Extremities: No edema cyanosis clubbing/deformities Skin: Warm and dry Assessment Assessment A 39-year-old female patient presented to the ED with chief complaint of abdominal pain. Admitted for the evaluation and management of small-bowel obstruction. Plan Plan Small-bowel obstruction CT abdomen:continuing distention of small-bowel loops suggesting small bowel obstruction. On the current exam there is some oral contrast seen in the distal bowel suggesting that there is no complete obstruction present however here is now some ascites present Lactic acid, downtrending NG tube placement. Full liquid diet, advance as tolerated NS at 120 mL/hour. Received 2 units of normal saline boluses [place] for pain management. Dr. Frias recommended outpatient consult with Colorectal surgeon and elective lap. Avoid IV narcotics Anxiety: Lorazepam 1 mg IV b.i.d. PRN. Code status: Full code DVT prophylaxis: SCDs Nutrition: Full liquid diet Prognosis: Guarded Disposition: Continue care in surgical floor, probable discharge in a day or two Tayla Espinoza MD Internal Medicine, PGY 1 Date of Service: October 26, 2024 Billing Provider: MILA AGEE MD Common Visit Codes: [id number] INP/OBS CARE(HIGH) TAYLA ESPINOZA, RES October 26, 2024 17:25 MILA AGEE MD October 28, 2024 15:05
[2024-10-26 18:00] VITALS: BP 91/61; PULSE 77; RESP 12; TEMP 98.6; O2SAT 99
[2024-10-26] MEDS: HYDROcodone/acetaminophen 5mg/325mg tablet PO PRN (19:31)
[2024-10-26 20:00] VITALS: RESP 14
[2024-10-26 22:00] VITALS: BP 125/73; PULSE 76; RESP 15; TEMP 97.4; O2SAT 99
[2024-10-27 04:54] LABS: BASOPHILS % (AUTO) 0.2 % (0-1); EOSINOPHILS # (AUTO) 0.2 X10'3 (0-0.9); HEMATOCRIT 30.1 % (35.0-45.0); HEMOGLOBIN 9.9 g/dl (12.0-16.0); LYMPHOCYTES # (AUTO) 1.6 X10'3 (1.1-4.8); LYMPHOCYTES % (AUTO) 31.4 % (21-51); MEAN CORPUSCULAR HEMOGLOBIN 26.2 PG (27.0-31.0); MEAN CORPUSCULAR HGB CONC 32.8 g/dL (33.0-36.5); MEAN CORPUSCULAR VOLUME 79.9 FL (78-98); MEAN PLATELET VOLUME 7.1 FL (7.4-10.4); MONOCYTES # (AUTO) 0.6 X10'3 (0-0.9); MONOCYTES % (AUTO) 11.2 % (2-12); NEUTROPHILS # (AUTO) 2.8 X10'3 (1.8-7.7); NEUTROPHILS % (AUTO) 53.2 % (42-75); PLATELET COUNT 219 X10'3 (140-440); RED BLOOD COUNT 3.77 X10'6 (4.20-5.60); RED CELL DISTRIBUTION WIDTH 16.3 % (11.5-14.5); WHITE BLOOD COUNT 5.2 X10'3 (4.5-11.0)
[2024-10-27 05:11] LABS: ALANINE AMINOTRANSFERASE 16 U/L (12-78); ALBUMIN 2.4 G/DL (3.4-5.0); ALBUMIN/GLOBULIN RATIO 0.9 (1.1-1.5); ALKALINE PHOSPHATASE 48 IU/L (46-116); ANION GAP 8 (8-16); ASPARTATE AMINO TRANSFERASE 10 U/L (10-37); BILIRUBIN,TOTAL 0.3 MG/DL (0.1-1.0); BLOOD UREA NITROGEN 4 MG/DL (7-18); BUN/CREATININE RATIO 4.8 (10.0-20.0); CALCIUM 8.1 MG/DL (8.5-10.1); CHLORIDE 110 MMOL/L (99-107); CREATININE 0.84 MG/DL (0.40-0.90); GLUCOSE 88 MG/DL (70-104); MAGNESIUM 1.5 MG/DL (1.5-2.4); POTASSIUM 3.5 MMOL/L (3.5-5.1); SODIUM 140 MMOL/L (135-145); TOTAL CARBON DIOXIDE 21.7 MMOL/L (24-32); eCRCL 71 ML/MIN; eGFR 75 ML/MIN
[2024-10-27 06:00] VITALS: BP 120/73; PULSE 70; RESP 15; TEMP 97.6; O2SAT 97
[2024-10-27 08:00] VITALS: RESP 16; O2SAT 98
[2024-10-27 08:41] LABS: FERRITIN 84 NG/ML (8-252)
[2024-10-27 09:11] LABS: % IRON SATURATION 15 % (11-46); IRON 45 UG/DL (49-151); TOTAL IRON BINDING CAPACITY 297 UG/DL (259-388)
[2024-10-27 10:00] VITALS: BP 139/75; PULSE 94; RESP 18; TEMP 98.4; O2SAT 99
[2024-10-27 10:28] VITALS: RESP 16
[2024-10-27 10:33] LABS: OCCULT BLOOD STOOL NEGATIVE (Neg)
[2024-10-27 12:47] LABS: HEMATOCRIT 31.2 % (35.0-45.0); HEMOGLOBIN 10.2 g/dl (12.0-16.0); MEAN CORPUSCULAR HGB CONC 32.6 g/dL (33.0-36.5); MEAN CORPUSCULAR VOLUME 79.7 FL (78-98); MEAN PLATELET VOLUME 7.9 FL (7.4-10.4); PLATELET COUNT 240 X10'3 (140-440); RED BLOOD COUNT 3.91 X10'6 (4.20-5.60); RED CELL DISTRIBUTION WIDTH 16.2 % (11.5-14.5); WHITE BLOOD COUNT 5.2 X10'3 (4.5-11.0)
[2024-10-27] MEDS ORDERED: ASCO125T PO (15:51)
[2024-10-27] MEDS ORDERED: FER325T PO (15:51)
--- NOTE | 2024-10-27 16:41 | DISCHARGE SUMMARY-Residence ---
Discharge Summary Providers to CC Resident Creating Document: ANTONIODARRICKTAYLA PELAEZ RES CC: MILA AGEE MD ~ Discharge Summary Assessment A 39-year-old female patient presented to the ED with chief complaint of abdominal pain. Admitted for the evaluation and management of small-bowel obstruction. Admission Diagnosis: ABDOMINAL PAIN Hospital Course DATE OF ADMISSION: 10/25/24 DATE OF DISCHARGE: 10/27/24 Discharge Diagnosis\Comment: Small-bowel obstruction Anxiety Operations\Procedures: None Consultants: Dr. Frias (surgeon) Complications: None Condition on DC: Stable New Medications: Ascorbic Acid (Vitamin C) 125 Mg Tab.chew 125 MG PO DAILY for 30 Days, #30 TAB.CHEW Ferrous Sulfate (Ferrous Sulfate) 325 Mg (65 Mg Iron) Tablet 1 TAB PO DAILY for 30 Days, #30 TAB 0 Refills Continued Medications: Dextroamphetamine/Amphetamine (Dextroamp-Amphet ER 10 mg Cap) 10 Mg Cap.er.24h 1 CAP PO QAM Escitalopram Oxalate (Escitalopram Oxalate) 20 Mg Tablet 1 TAB PO DAILY Letrozole (Letrozole) 2.5 Mg Tablet 1 TAB PO PRN PRN for call pharmacy for dose Loratadine (Loratadine) 10 Mg Tablet 1 TAB PO DAILY Lorazepam (Ativan) 1 Mg Tablet 1 TAB PO BID PRN for for anxiety/agitation ONDANSETRON ODT 4mg tablet (Ondansetron Odt) 4 Mg Tab.rapdis 1 TABLET PO Q6H PRN for nausea/vomiting, #12 TABLET Discharge Summary: A 39-year-old female with past medical history of multiple episodes of small- bowel obstruction, colectomy presented the ED with abdominal pain, nausea, vomitings. On further imaging patient was found to have partial small-bowel obstruction. Patient was initially treated conservatively with NG tube placement. Patient has started to self resolve, started to pass flatus and have bowel sounds. Patient eventually started to tolerate food. Dr. Frias (surgeon) was simultaneously consulted who recommended conservative management. Patient's small-bowel obstruction resolved with conservative management. Patient is hemodynamically stable and has been discharged home. Physical examination at discharge: General: Alert, awake, oriented, not in acute distress HEENT: PERRLA, no icterus, pallor, lymphadenopathy, carotid bruit Respiratory system: Bilateral vesicular breath sounds heard, no adventitious breath sounds CVS: S1-S2 heard, no murmurs/rubs/gallop GI: Surgical scar present on the abdomen, Generalized tenderness in the abdominal region (improved), Soft, no organomegaly, no guarding/rigidity, bowel sounds present Neuro: No focal neurological deficits present Extremities: No edema cyanosis clubbing/deformities Skin: Warm and dry Labs at discharge: WBC: 5.2, H/H: 10.2/31.2, platelet count: 240 Sodium: 140, potassium: 3.5, BUN: Four, creatinine: 0.84 Imaging: Abdomen/pelvis CT: Findings likely represent a partial SBO. Chest x-ray: Nasogastric tube tip projects over the stomach in proper location Repeat abdomen/pelvis CT: Compared to previous study there is continuing distention of small-bowel loops suggesting small bowel obstruction. On the current exam there is some oral contrast seen in the distal bowel suggesting that there is no complete obstruction present however here is now some ascites present (not previously present) Discharge medications can be found above patient is discharged home with the following recommendations: Follow up with your primary care within two weeks of discharge. Follow up with colorectal surgeon and plan for elective laparoscopy. Return to ER in view of unbearable abdominal pain, nausea, vomitings, or signs of obstruction. *Problems/Diagnosis: (1) Small bowel obstruction Status: Resolved Total Time Spent on D/C: > 30 Minutes Date of Service: October 27, 2024 Billing Provider: MILA AGEE MD Common Visit Codes: 73068-TMU/OBS DISCH DAY >30min TAYLA ESPINOZA, JOSIE October 27, 2024 16:41 MILA AGEE MD October 28, 2024 15:06
== END 2024-10-27 14:30 | disposition home or self-care (01) | DRG 389 ==
LOC: ER 18:59 → ED HOLD 10-25 01:49 → EDBEDREQ 10-25 06:46 → ORTHO 4S 10-25 07:04
PROVIDERS: ADMIT Internal Medicine Critical Care Medicine; ATTEND Family Medicine
PROC: BW211ZZ Computerized Tomography (CT Scan) of Abdomen and Pelvis using Low Osmolar Contrast (ICD-10-PCS; principal; 2024-10-24)
PROC: 0D9670Z Drainage of Stomach with Drainage Device, Via Natural or Artificial Opening (ICD-10-PCS; 2024-10-25)
DX: K56.609 Unspecified intestinal obstruction, unspecified as to partial versus complete obstruction (principal); Z59.00 Homelessness unspecified; F41.9 Anxiety disorder, unspecified; J45.909 Unspecified asthma, uncomplicated; F32.A Depression, unspecified; Z88.1 Allergy status to other antibiotic agents; Z91.011 Allergy to milk products; Z91.010 Allergy to peanuts; Z91.018 Allergy to other foods; Z79.899 Other long term (current) drug therapy; Z90.49 Acquired absence of other specified parts of digestive tract; Z85.41 Personal history of malignant neoplasm of cervix uteri; Z87.891 Personal history of nicotine dependence
CPT/HCPCS: 36415; 71045; 74176; 74177; 80053; 80061; 81003; 82272; 82728; 83036; 83540; 83550; 83605; 83690; 83735; 84132; 84145; 84443; 84703; 85025; 85027; 87081; 96361; 96374; 96375; 99285; G0378; J1171; J2270; J2405; J2765; J7030; Q9963; Q9967

== ENCOUNTER 2025-04-08 02:15 | Emergency (ER) | payer MEDICAID ==
[~2025-04-08] VITALS: Ht 157.5 cm; Wt 67.5 kg
[~2025-04-08 02:15] MED LIST changes: +ASCO125T PO; +FER325T PO; -MULT-1085 PO
[2025-04-08 02:37] VITALS: TEMP 98
--- NOTE | 2025-04-08 03:16 | Physician Documentation ---
History of Present Illness ~ Chief Complaint: Abdominal Pain Stated Complaint: BOWEL OBSTRUCTION Time Seen by MD: 03:15 Primary Medical Doctor: [facility] Mode of Arrival: POV HPI Patient presents to the emergency room with abdominal pain. She reports this feels similar to previous small-bowel obstructions. She is admitted here in October for bowel obstruction. She has distant history of colectomy secondary to familial polyposis. She has history of ileostomy but this has been reversed and she now defecates normally. Symptoms began last night at 7:00 p.m.. She states she has not passing any gas. Medication Reconciliation Allergies: Coded Allergies: wheat (Verified Allergy, Intermediate, 10/24/24) SEVERE INTESTINAL DISCOMFORT azithromycin (Verified Allergy, Mild, RASH, 10/24/24) corn (Verified Allergy, Mild, 10/24/24) INTESTINAL PAIN soy (Verified Allergy, Mild, 10/24/24) INTESTINAL DISCOMFORT Uncoded Allergies: PEANUTS (Allergy, Intermediate, 05/14/18) INTESTINAL DISCOMFORT LACTOSE INTOLERATE (Allergy, Unknown, 01/03/17) Scheduled Ascorbic Acid (Vitamin C), 125 MG PO DAILY Dextroamphetamine/Amphetamine (Dextroamp-Amphet ER 10 mg Cap), 1 CAP PO QAM, (Reported) Escitalopram Oxalate (Escitalopram Oxalate), 1 TAB PO DAILY, (Reported) Ferrous Sulfate (Ferrous Sulfate), 1 TAB PO DAILY Loratadine (Loratadine), 1 TAB PO DAILY, (Reported) Scheduled PRN Letrozole (Letrozole), 1 TAB PO PRN PRN for call pharmacy for dose, (Reported) Lorazepam (Ativan), 1 TAB PO BID PRN for for anxiety/agitation, (Reported) ONDANSETRON ODT 4mg tablet (Ondansetron Odt), 1 TABLET PO Q6H PRN for nausea/vomiting Past Medical History Past Medical History: *CARDIOVASCULAR*, Asthma, *GI/HEPATOBILIARY*, Bowel Obstruction, Hernia, Chronic Pain, Cervical Cancer/Dysplasia, Anxiety, Depression Past Surgical History: abdominal surgery, appendectomy, colectomy, tonsillectomy Other Past Surgical History: Hernia repair. Total laparoscopic proctocolectomy (2009) Patient History: FH: lymphoma Alcohol Use: None Drug Use: none Lives with: Alone Lives In: Homeless Occupation: employed Review of Systems ROS All review of systems negative except as per HPI Physical Exam Vital Signs: Temperature: 98.0, Heart Rate: 73, Respiratory Rate: 16, BP: 125/74, Pulse Oximetry: 98, Weight: 67.500 Oxygen Flow Rate: 0 Physical Exam General: Patient is awake, alert, oriented x4 in no acute distress Head: Normocephalic and atraumatic. Eyes: Conjunctival normal. EOMI. PERRL. ENT: Mucous membranes moist. Neck: Supple, trachea is midline. Chest: Clear to auscultation bilaterally without rales, rhonchi, or wheezes. There is no accessory muscle use or retractions. Cardiac: RRR without murmurs, gallops, or rubs. Abd: Soft, nondistended, diffuse abdominal tenderness without peritonitis Progress Results/Orders Results/Orders Orders - JIN WELCH MD Ct Abdomen Pelvis (04/08/25 04:40) Completed Orders - JIN WELCH MD CMP (04/08/25 03:20) Cbc/Diff (04/08/25 03:20) Lipase (04/08/25 03:20) Urinalysis, Cult If Indicated (04/08/25 03:20) Hcg, Ur Ql (04/08/25 03:20) Ct Abdomen Pelvis (04/08/25 04:40) Morphine 4mg/Ml Inj. (Morphine Inj.) (04/08/25 04:00) Ondansetron Inj. (Zofran 4mg/2ml Vial) (04/08/25 04:00) Normal Saline 1000ml (0.9% Sodium Chlori (04/08/25 04:00) Medications Received in ER Medications (Trade) Dose Ordered Sig/Louie Route PRN Reason Start Time Stop Time Status Last Admin Dose Admin (morphine inj.) 4 mg ONCE ONCE IV 04/08/25 04:00 04/08/25 04:01 DC 04/08/25 04:09 4 MG (Zofran 4mg/2ml vial) 4 mg ONCE ONCE IV 04/08/25 04:00 04/08/25 04:04 DC 04/08/25 04:08 4 MG Sodium Chloride 1,000 ml @ 1,000 mls/hr ONCE ONCE IV 04/08/25 04:00 04/08/25 04:59 DC 04/08/25 04:11 1,000 MLS/HR Vital Signs 04/08/25 04/08/25 04/08/25 04/08/25 02:37 02:44 03:41 05:10 Temp 98.0 Pulse 73 56 52 Resp 20 16 16 16 B/P (MAP) 125/74 112/73 (86) 107/60 (76) Pulse Ox 98 99 98 O2 Flow Rate 0 Laboratory Tests Test 04/08/25 03:37 04/08/25 05:11 White Blood Count 6.4 Red Blood Count 4.51 Hemoglobin 12.2 Hematocrit 37.3 Mean Corpuscular Volume 82.6 Mean Corpuscular Hemoglobin 27.1 Mean Corpuscular Hemoglobin Concent 32.7 L Red Cell Distribution Width 17.0 H Platelet Count 306 Mean Platelet Volume 7.4 Neutrophils (%) (Auto) 61.4 Lymphocytes (%) (Auto) 26.2 Monocytes (%) (Auto) 9.3 Eosinophils (%) (Auto) 2.7 Basophils (%) (Auto) 0.4 Neutrophils # (Auto) 3.9 Lymphocytes # (Auto) 1.7 Monocytes # (Auto) 0.6 Eosinophils # (Auto) 0.2 Basophils # (Auto) 0.0 CBC Comment Sodium Level 139 Potassium Level 4.0 Chloride Level 106 Carbon Dioxide Level 26.9 Anion Gap 6 L Blood Urea Nitrogen 14 Creatinine 0.85 Estimated GFR/1.73 m2 74 BUN/Creatinine Ratio 16.5 Glucose Level 95 Calcium Level 8.5 Total Bilirubin 0.2 Aspartate Amino Transf (AST/SGOT) 18 Alanine Aminotransferase (ALT/SGPT) 23 Alkaline Phosphatase 79 Total Protein 6.9 Albumin 3.4 Globulin 3.5 Albumin/Globulin Ratio 1.0 L Lipase 35 Chemistry Comments Urine Specimen Description Cln catch midstream Urine Color Yellow Urine Clarity Clear Urine pH 6.0 Urine Specific [place] 1.025 Urine Protein Negative Urine Glucose (UA) Negative Urine Ketones Negative Urine Occult Blood Negative Urine Nitrite Negative Urine Bilirubin Negative Urine Urobilinogen 0.2 Urine Leukocyte Esterase Negative Urine Culture Indicated Not ind Volume Urine Centrifuged 10 ml Urine HCG, Qualitative Negative Urine Comment Medical Decision Making Additional information obtaine: old records Findings Patient presented to the emergency room with abdominal pain as per HPI. Differentials were vas including small-bowel obstruction and infectious process therefore labs and imaging ordered. Labs and imaging reassuring. Noted retained stool. Had long conversation with her regarding this. I will prescribe her some MiraLax with instructions to stay hydrated. Diff Dx GI Bleed:Consideration: Include: AE fistula, Angiodysplasia, Bleeding diathesis, Blood loss anemia, Carcinoma, Diverticulosis, Diverticulitis, Esophageal varicies, Esophagitis, Gastritis, Gastroenteritis, Inflammatory BD, Kathryn-Costa syndrome, Meckel's diverticulum, PUD, Other Diff Dx Pain:Considerations: Include: AAA, -Complete, - Incomplete, -Inevitable, -Missed, -Threatened, Abruptio placentae, Angina/ND, Aortic dissection, Appendicitis, Bowel obstruction, Cholangitis, Cholecystitis, Cholelithasis, Constipation, Diverticular disease, Dysmenorrhea, Ectopic , Esophageal rupture, Esophagitis, Gastritis/PUD, Gastroenteritis, GI hemorrhage, Hernia, Hepatitis, Inflammatory BD, Ischemic bowel, Mass, Ovarian cyst/torsion, Pancreatitis, PID, Porphyria, Trauma, intraabdominal, Urinary obstruction, Urinary tract infection, Urolithiasis, Other Diff Dx N/V/D:Considerations: Include: Appendicitis, Bowel obstruction, Dehydration, DKA, Diarrhea - bacterial, Diarrhea - parasitic, Diarrhea - viral, Diverticulitis, Diverticulosis, Drug toxicity, Electrolyte imbalance, Food poisoning, Gastroenteritis, GE reflux, GI bleed, Hepatitis, Hernia, Hypovolemia, Hypotension, Inflammatory BD, Impaction, Malnutrition, Pancreatitis, , PUD, Renal failure, Urolithiasis, Urinary obstruction, UTI, Other Diff Dx Rectal:Considerations: Include: Fissure, Fistula, Foreign body, Impaction, Perirectal abscess, Rectal prolapse, Subcutaneous abscess, Thrombosed hemorrhoid, Ulcer, UTI, Other Departure Disposition: 01 HOME / SELF CARE / HOMELESS Impression: Primary Impression: Constipation Condition: Guarded Discharge Instructions: Constipation, Adult Referrals: NO PRIMARY CARE PROVIDER (PCP) Prescriptions Polyethylene Glycol 3350 (Miralax) 17 Gram/Dose Powder 17 GM PO DAILY for constipation, #527 GM 0 Refills dissolve in water Prov: JIN WELCH MD 04/08/25 Signature Scribe Signature: No scribe Attestation: The note accurately reflects work and decisions made by me.Jin Welch MD 04/08/25 05:46 JIN WELCH MD Apr 08, 2025 03:16
[2025-04-08 04:00] LABS: MEAN PLATELET VOLUME 7.4 FL (7.4-10.4); RED CELL DISTRIBUTION WIDTH 17.0 % (11.5-14.5)
[2025-04-08] MEDS: ondansetron/PF 4mg/2ml inj IV ONE (04:08)
[2025-04-08] MEDS: morphine 4 MG/ML inj SYRINge IV ONE (04:09)
[2025-04-08 04:10] LABS: CREATININE 0.85 MG/DL (0.40-0.90); TOTAL CARBON DIOXIDE 26.9 MMOL/L (24-32); eCRCL 70 ML/MIN; eGFR 74 ML/MIN
[2025-04-08] MEDS: normal saline 1000ml 1,000 ML IV ONE (04:11)
[2025-04-08 05:21] LABS: LEUKOCYTE ESTERASE ,URINE NEGATIVE (Neg); NITRITES, URINE NEGATIVE (Neg); OCCULT BLOOD,URINE NEGATIVE (Neg)
[2025-04-08 05:22] LABS: UA COLLECTION TYPE CLN CATCH MIDSTREAM
--- NOTE | 2025-04-08 05:22 | RADIOLOGY REPORT ---
Exam: CT CT ABDOMEN PELVIS History: Abdominal Pain COMPARISON: CT CT ABDOMEN PELVIS W/ ORAL CONTRAST on DOS: 10/25/24, CT CT ABDOMEN PELVIS W/ IV CONTRAST on DOS: 10/24/24, CT CT ABDOMEN PELVIS on DOS: 12/14/23 Technique: Multidetector spiral CT of the abdomen and pelvis was performed from lung bases to pubic symphysis. Intravenous contrast was administered during this examination. Portal venous imaging was obtained. Axial, coronal and sagittal multiplanar reformats were performed by the technologist on a separate workstation. Radiation Dose : 1. Abdomen/Pelvis: CTDIvol 27.56 mGy, DLP 1342.85 mGy*cm. CONTRAST: Type of contrast: Contrast injected: ml Contrast ingested: ml Findings: Lung Bases: No acute or significant lung base finding. Normal heart size. No pleural or pericardial effusion. Liver: The liver is normal in size. No focal lesions. Normal hepatic vascular enhancement. Gallbladder and Biliary Tree: Unremarkable Spleen: Unremarkable Pancreas: The pancreas is normal in appearance without focal lesions or abnormal enhancement. Adrenal Glands: Unremarkable Kidneys: Punctate nonobstructing right inferior pole pelvocaliceal calculus. No hydronephrosis. Bladder: Unremarkable Bowel: Small sliding-type hiatal hernia. The stomach is grossly normal in appearance. Retained colorectal stool. Anastomotic bowel sutures within the right abdomen and distally within the low rectum. Small bowel and colon are normal in caliber and distribution. The appendix is not visualized; however, no secondary findings of acute appendicitis identified. Ascites: Absent Lymphadenopathy: No mesenteric, retroperitoneal or periportal lymphadenopathy. Abdominal Wall and Mesentery: Unremarkable. Vasculature: The visualized abdominal aorta is normal in size and caliber. Abdominal and pelvic vessels demonstrate normal enhancement. Pelvic Organs: Unremarkable Musculoskeletal: No aggressive focal bony lesions, acute fractures or dislocation. IMPRESSION: 1. No acute abdominal or pelvic finding. 2. Retained colorectal stool. Postsurgical change noted. 3. Hiatal hernia. Radiation optimization: All CT scans at this facility use at least one of these dose optimization techniques: automated exposure control mA and/or kV adjustment per patient size (includes targeted exams where dose is matched to clinical indication) or iterative reconstruction.
[2025-04-08 05:23] LABS: URINE HCG NEGATIVE (NEG)
[2025-04-08] MEDS ORDERED: POLY119P2 PO (05:47)
[2025-04-08 06:10] VITALS: BP 111/63; PULSE 58; RESP 16; O2SAT 98
== END 2025-04-08 06:11 | disposition home or self-care (01) ==
LOC: ER 02:15
DX: K59.00 Constipation, unspecified (principal); J45.909 Unspecified asthma, uncomplicated; G89.29 Other chronic pain; F41.9 Anxiety disorder, unspecified; F32.A Depression, unspecified; Z85.41 Personal history of malignant neoplasm of cervix uteri; Z86.0109 Personal history of other colon polyps; Z88.1 Allergy status to other antibiotic agents; Z91.018 Allergy to other foods; Z90.49 Acquired absence of other specified parts of digestive tract; Z90.89 Acquired absence of other organs; Z98.890 Other specified postprocedural states; Z79.899 Other long term (current) drug therapy; Z59.00 Homelessness unspecified; Z60.2 Problems related to living alone
CPT/HCPCS: 36415; 74176; 80053; 81003; 81025; 83690; 85025; 96361; 96374; 96375; 99285; J2270; J2405; J7030